=== PATIENT | female | born 1960 | race Caucasian/White ===

== ENCOUNTER 2018-04-25 04:00 | Emergency (ER) | payer OTHER ==
--- NOTE | 2018-04-25 05:24 | EDPHYS ---
Physician Documentation [facility] Name: Amara Noe Age: 57 yrs Sex: Female : 1960 Arrival Date: 04/25/2018 Time: 04:04 Bed 7 Private MD: ED Physician Brooks Montez HPI: 04/25 04:19 This 57 yrs old Female presents to ER via Ambulatory with complaints of Thumb ps1 Injury. 04:19 patient was dancing and FOOSH backwards. Did not hit head. No LOC. Pain rated 10/10. ps1 Associated with bruising and pain to MCP of thumb. Worse with movement. . Historical: - Allergies: 04:15 Sulfa (Sulfonamide Antibiotics); tl2 04:15 Tetanus-Diphtheria Toxoids-Td; tl2 04:15 Premarin; tl2 04:15 Codeine; tl2 04:15 steroids; tl2 - Home Meds: 04:15 muscle relaxer [Active]; Aspirin Oral [Active]; tl2 - PMHx: 04:15 None; tl2 - PSHx: 04:15 gastric sleeve; Hysterectomy; Bladder suspension; tl2 - Immunization history:: Adult Immunizations up to date. - Social history:: Smoking status: Patient/guardian denies using tobacco. - Ebola Screening: : No symptoms or risks identified at this time. ROS: 04:19 Constitutional: Negative for fever, chills, and weight loss, Eyes: Negative for injury, ps1 pain, redness, and discharge, Cardiovascular: Negative for chest pain, palpitations, and edema, Respiratory: Negative for shortness of breath, cough, wheezing, and pleuritic chest pain, Abdomen/GI: Negative for abdominal pain, nausea, vomiting, diarrhea, and constipation, Back: Negative for injury and pain, Skin: Negative for injury, rash, and discoloration, Neuro: Negative for headache, weakness, numbness, tingling, and seizure. 04:19 MS/extremity: Positive for decreased range of motion, pain, swelling. Exam: 04:19 Constitutional: This is a well developed, well nourished patient who is awake, alert, ps1 and in no acute distress. Head/Face: Normocephalic, atraumatic. Eyes: Pupils equal round and reactive to light, extra-ocular motions intact. Lids and lashes normal. Conjunctiva and sclera are non-icteric and not injected. Chest/axilla: Normal chest wall appearance and motion. Nontender with no deformity. No lesions are appreciated. Cardiovascular: Regular rate and rhythm. No gallops, murmurs, or rubs. Normal PMI, no JVD. No pulse deficits. Respiratory: Lungs have equal breath sounds bilaterally, clear to auscultation and percussion. No rales, rhonchi or wheezes noted. No increased work of breathing, no retractions or nasal flaring. Abdomen/GI: Soft, non-tender, with normal bowel sounds. No distension or tympany. No guarding or rebound. No evidence of tenderness throughout. 04:19 Musculoskeletal/extremity: Extremities: grossly normal except: noted in the lateral aspect of right hand: decreased ROM, ecchymosis, pain, swelling. Vital Signs: 04:15 BP 138 / 77; Pulse 68; Resp 18; Temp 98.3(O); Pulse Ox 95% on R/A; Weight 68.04 kg; tl2 Height 5 ft. 3 in. (160.02 cm); Pain 10/10; 05:27 BP 123 / 94; Pulse 70; Resp 18; Pulse Ox 98% on R/A; tl2 04:15 Body Mass Index 26.57 (68.04 kg, 160.02 cm) tl2 MDM: 04:28 Patient medically screened. ps1 05:23 Data reviewed: vital signs, nurses notes, radiologic studies, plain films, and as a ps1 result, I will discharge patient. Counseling: I had a detailed discussion with the patient and/or guardian regarding: the historical points, exam findings, and any diagnostic results supporting the discharge/admit diagnosis, radiology results, the need for outpatient follow up, a orthopedic surgeon, to return to the emergency department if symptoms worsen or persist or if there are any questions or concerns that arise at home. 04/25 04:11 Order name: Hand Right 3 View XRAY tl1 04/25 04:48 Order name: Humerus Right XRAY ps1 Administered Medications: 05:28 Drug: [place] 5 mg-325 mg 1 tabs Route: PO; tl2 05:33 Follow up: Response: No adverse reaction; Medication administered at discharge. tl2 Disposition: 04/25/18 05:23 Discharged to Home. Impression: right, non displaced 3rd metacarpal fx, Pain in right shoulder. - Condition is Stable. - Discharge Instructions: Metacarpal Fracture. - Medication Reconciliation Form, Thank You Letter, Antibiotic Education, Prescription Opioid Use form. - Follow up: Private Physician; When: As needed; Reason: Further diagnostic work-up, Recheck today's complaints, Continuance of care, Re-evaluation by your physician. Follow up: Emergency Department; When: As needed; Reason: Worsening of condition. - Problem is new. - Symptoms have improved. Signatures: Dispatcher [employer] EDMS Misty Croft RN RN tl2 Brooks Montez MD MD ps1 Corrections: (The following items were deleted from the chart) 05:25 05:23 04/25/2018 05:23 Discharged to Home. Impression: right, non displaced 3rd ps1 metacarpal fx. Condition is Stable. Forms are Medication Reconciliation Form, Thank You Letter, Antibiotic Education, Prescription Opioid Use. Follow up: Private Physician; When: As needed; Reason: Further diagnostic work-up, Recheck today's complaints, Continuance of care, Re-evaluation by your physician. Follow up: Emergency Department; When: As needed; Reason: Worsening of condition. Problem is new. Symptoms have improved. ps1 05:35 05:25 04/25/2018 05:23 Discharged to Home. Impression: right, non displaced 3rd tl2 metacarpal fx; Pain in right shoulder. Condition is Stable. Forms are Medication Reconciliation Form, Thank You Letter, Antibiotic Education, Prescription Opioid Use. Follow up: Private Physician; When: As needed; Reason: Further diagnostic work-up, Recheck today's complaints, Continuance of care, Re-evaluation by your physician. Follow up: Emergency Department; When: As needed; Reason: Worsening of condition. Problem is new. Symptoms have improved. ps1
--- NOTE | 2018-04-25 05:24 | ER ---
Nurse's Notes [facility] Name: Amara Noe Age: 57 yrs Sex: Female : 1960 Arrival Date: 04/25/2018 Time: 04:04 Bed 7 Private MD: Diagnosis: right, non displaced 3rd metacarpal fx;Pain in right shoulder Presentation: 04/25 04:11 Presenting complaint: Patient states: I fell backwards last night and caught myself tl2 with my right hand. I woke up around 3 and my hand is bruised and swollen. Transition of care: patient was not received from another setting of care. Onset of symptoms was April 25, 2018 at 00:00. Risk Assessment: Do you want to hurt yourself or someone else? Patient reports no desire to harm self or others. Initial Sepsis Screen: Does the patient meet any 2 criteria? No. Patient's initial sepsis screen is negative. Does the patient have a suspected source of infection? No. Patient's initial sepsis screen is negative. Care prior to arrival: None. 04:11 Method Of Arrival: Ambulatory tl2 04:11 Acuity: ANDREW 4 tl2 Triage Assessment: 04:15 General: Appears in no apparent distress. uncomfortable, Behavior is calm, cooperative, tl2 appropriate for age. Pain: Complains of pain in right hand. Neuro: Level of Consciousness is awake, alert, obeys commands, Oriented to person, place, time, situation. Respiratory: Airway is patent Respiratory effort is even, unlabored. Musculoskeletal: Circulation, motion, and sensation intact. Range of motion: limited in right wrist Swelling present in right hand. Injury Description: Bruise sustained to lateral aspect of right hand is purple, was sustained 2-4 hours ago. Historical: - Allergies: 04:15 Sulfa (Sulfonamide Antibiotics); tl2 04:15 Tetanus-Diphtheria Toxoids-Td; tl2 04:15 Premarin; tl2 04:15 Codeine; tl2 04:15 steroids; tl2 - Home Meds: 04:15 muscle relaxer [Active]; Aspirin Oral [Active]; tl2 - PMHx: 04:15 None; tl2 - PSHx: 04:15 gastric sleeve; Hysterectomy; Bladder suspension; tl2 - Immunization history:: Adult Immunizations up to date. - Social history:: Smoking status: Patient/guardian denies using tobacco. - Ebola Screening: : No symptoms or risks identified at this time. Screenin:21 Abuse screen: Denies threats or abuse. Nutritional screening: No deficits noted. tl2 Tuberculosis screening: No symptoms or risk factors identified. Fall Risk None identified. Assessment: 04:15 General: see triage assessment. tl2 05:27 Reassessment: Patient appears in no apparent distress at this time. Patient and/or tl2 family updated on plan of care and expected duration. Pain level reassessed. Patient is alert, oriented x 3, equal unlabored respirations, skin warm/dry/pink. Vital Signs: 04:15 BP 138 / 77; Pulse 68; Resp 18; Temp 98.3(O); Pulse Ox 95% on R/A; Weight 68.04 kg; tl2 Height 5 ft. 3 in. (160.02 cm); Pain 10/10; 05:27 BP 123 / 94; Pulse 70; Resp 18; Pulse Ox 98% on R/A; tl2 04:15 Body Mass Index 26.57 (68.04 kg, 160.02 cm) tl2 ED Course: 04:04 Patient arrived in ED. es 04:10 Brooks Montez MD is Attending Physician. ps1 04:12 Triage completed. tl2 04:15 Arm band placed on right wrist. tl2 04:21 Patient has correct armband on for positive identification. Bed in low position. Call tl2 light in reach. Side rails up X 1. 04:34 X-ray completed. Portable x-ray completed in exam room. Patient tolerated procedure mh1 well. 04:41 Hand Right 3 View XRAY In Process Unspecified. EDMS 04:57 pre formed wrist splint applied to rt wrist. Aaron wrap X2. CMS intact. cc 05:23 Humerus Right XRAY In Process Unspecified. EDMS 05:27 No provider procedures requiring assistance completed. tl2 05:32 Misty Croft RN is Primary Nurse. tl2 05:33 Patient did not have IV access during this emergency room visit. tl2 Administered Medications: 05:28 Drug: [place] 5 mg-325 mg 1 tabs Route: PO; tl2 05:33 Follow up: Response: No adverse reaction; Medication administered at discharge. tl2 Outcome: 05:23 Discharge ordered by . ps1 05:32 Discharged to home ambulatory. tl2 05:32 Condition: stable 05:32 Discharge instructions given to patient, Instructed on discharge instructions, follow up and referral plans. Demonstrated understanding of instructions, follow-up care. 05:35 Patient left the ED. tl2 Signatures: Dispatcher [employer] Page Kelly Martha mh1 Kathy Wolfe Taylor, RN RN tl2 Brooks Montez MD MD ps1
[2018-04-25] MEDS ORDERED: HYDROCODONE/APAP 5/325 MG TAB ONE (05:30)
--- NOTE | 2018-04-25 09:32 | RAD REPORT ---
EXAM DESCRIPTION: RAD - Hand Right 3 View - 04/25/2018 4:41 am CLINICAL HISTORY: Fall, wrist pain COMPARISON: None. FINDINGS: No fracture is identified. There is no dislocation or periosteal reaction noted. No forei gn body or other soft tissue abnormality. IMPRESSION: Negative right hand examination. Repeat imaging in 7 days could be performed if the nanette ent has continued symptoms concerning for fracture.
--- NOTE | 2018-04-25 09:34 | RAD REPORT ---
EXAM DESCRIPTION: RAD - Humerus Right - 04/25/2018 5:23 am CLINICAL HISTORY: Fall, upper extremity pain COMPARISON: None. FINDINGS: No fracture is identified. There is no dislocation or periosteal reaction noted. Patient h as mild degenerative changes at the AC joint and acromion. Acromial humeral joint space is normal. Mi ld degenerative changes noted at the lateral epicondyle of the elbow. No acute bone or joint finding confirmed. IMPRESSION: Negative right humerus examination for acute finding.
== END 2018-04-25 05:35 | disposition home or self-care (01) ==
LOC: ER 04:00
DX: S62.302A Unspecified fracture of third metacarpal bone, right hand, initial encounter for closed fracture (principal); M25.511 Pain in right shoulder; W19.XXXA Unspecified fall, initial encounter; Y93.41 Activity, dancing; Y92.9 Unspecified place or not applicable; Z79.82 Long term (current) use of aspirin; Z88.2 Allergy status to sulfonamides; Z88.5 Allergy status to narcotic agent; Z88.7 Allergy status to serum and vaccine; Z88.8 Allergy status to other drugs, medicaments and biological substances
CPT/HCPCS: 99283

== ENCOUNTER 2018-11-20 00:38 | Emergency (ER) | payer OTHER ==
--- OUTSIDE RECORDS SUMMARY | 2018-11-20 00:40 | XMS REPORT | Clinical Summary ---
:1960 Author Organization [facility] Address [address] [place] [address] Care Team Providers Name Role Phone Bernabe Quinones MD Primary Care Provider Allergies Active Allergy Reactions Severity Noted Date Comments Amoxicillin 06/11/2017 Codeine 06/11/2017 Pregabalin 06/11/2017 Other 06/11/2017 Bee's Other Food 07/08/2017 Steroids Conjugated Estrogens 06/11/2017 Sulfa (Sulfonamide Antibiotics) 06/11/2017 Tetanus Vaccines And Toxoid 06/11/2017 Medications Medication Sig Dispensed Refills Start Date End Date Status estradiol JARED ONE PATCH 2 05/26/2017 Active (VIVELLE-DOT) 0.1 TOPICALLY TWICE mg/24 hr WEEKLY. meloxicam (MOBIC) 15 TK 1 T PO QD 0 05/26/2017 Active mg tablet losartan (COZAAR) 50 TK 1 T PO QD 0 05/25/2017 Active MG tablet PNEUMOVAX 23 25 IMMUNIZATION GIVEN 0 04/27/2017 Active mcg/0.5 mL syringe vaccine estradiol (ESTRACE) 1 TK 1 T PO TWICE 0 06/08/2017 Active MG tablet WEEKLY methocarbamol TK 1 T PO BID 0 05/25/2017 Active (ROBAXIN) 500 MG tablet mometasone (ELOCON) APPLY AA D BY 0 06/08/2017 Active 0.1 % cream TOPICAL ROUTE PRN triamcinolone JARED SPARINGLY AA 0 03/31/2017 Active (KENALOG) 0.025 % BID PRN cream FLUCELVAX QUAD IMMUNIZATION GIVEN 0 04/27/2017 Active 7396-6151, PF, 60 mcg (15 mcg x 4)/0.5 mL syringe IM Injection estropipate (OGEN) 3 TK 1 T PO BID 60 tablet 0 10/02/2017 Active MG tabletIndications: Postmenopausal symptoms Active Problems Not on file Family History Medical History Relation Name Comments Colon cancer Brother Brain cancer Mother Relation Name Status Comments Brother dx unknown age Mother dx 60y/o Social History Tobacco Use Types Packs/Day Years Used Date Never Smoker Smokeless Tobacco: Never Used Sex Assigned at Date Recorded Not on file Job Start Date Occupation Industry Not on file Not on file Not on file Travel History Travel Start Travel End No recent travel history available. Last Filed Vital Signs Not on file Plan of Treatment Health Maintenance Due Date Last Done Comments CERVICAL CANCER SCREENING 10/24/1979 BREAST CANCER SCREENING 2008 COLON CANCER SCREENING 2008 SHINGLES VACCINES (#1) 2008 INFLUENZA VACCINE 03/17/2019 Results Not on fileafter 11/19/2017 Insurance Payer Benefit Plan / Group Subscriber ID Type Phone Address [employer]HC MEDICAID [employer] IVAN xxxxxxxxx HMO Advance Directives Patient has advance care planning documents on file. For more information, please contact:Adama Briceño [place] [address]
--- OUTSIDE RECORDS SUMMARY | 2018-11-20 00:41 | XMS REPORT ---
:1960 Author Organization [facility] Address [address] [place] [address] [address]. [address] [place] [address] Care Team Providers Name Role Phone MAGDIEL KING Unavailable Unavailable Problems This patient has no known problems. Allergies, Adverse Reactions, Alerts This patient has no known allergies or adverse reactions. Medications This patient has no known medications. Results Test Description Test Time Test Comments Text Results Atomic Results Result Comments TISSUE EXAM 2018-10-04 14:36:00 Surgical Pathology Report Case: [id number] Authorizing Provider: Magdiel King MD Collected: 09/30/2018 1741 Ordering Location: [facility] Received: 10/01/2018 0825 SERVICES Pathologist: Elroy Araya MD Specimen: Abdomen, ABDOMINAL PANNUS A. ABDOMEN, PANNUS, EXCISION: - BENIGN SKIN AND UNREMARKABLE ADIPOSE TISSUE Signing Pathologist Direct Phone Line: [phone] signed by Elroy Araya MD on 10/04/2018 at 2:36 [id number] panniculusAbdominal pannusThe specimen is received in a formalin-filled container and labeled with the patient's information and labeled "abdominal pannus" and consists of two segments of fibrofatty tissue and damon-white skin both measuring 22 x 19 x 3 cm. The skin is unremarkable. Cut surface is predominantly fatty tissue. There are no masses seen. Monkey Trainer sections are submitted A1 through A6. CG/pl Performed. ELECTROLYTES 2018-09-28 11:51:00 Test Item Value Reference Range Comments SODIUM (BEAKER) (test pacf=673) 141 meq/L 136-145 POTASSIUM (BEAKER) (test rvxi=389) 4.5 meq/L 3.5-5.1 CHLORIDE (BEAKER) (test rdpr=071) 108 meq/L 98-107 CO2 (BEAKER) (test svow=573) 28 meq/L 22-29 BUN AND [id number] 11:51:00 Test Item Value Reference Range Comments BLOOD UREA NITROGEN 15 mg/dL 7-21 (BEAKER) (test aedd=543) CREATININE (BEAKER) (test 0.70 mg/dL 0.57-1.25 tgij=649) EGFR (BEAKER) (test 86 mL/min/1.73 sq m ESTIMATED GFR IS NOT iuqz=7373) ACCURATE CREATININE CLEARANCE IN PREDICTING GLOMERULAR FILTRATION RATE. ESTIMATED GFR IS NOT APPLICABLE FOR DIALYSIS PATIENTS. [id number] 11:39:00 Test Item Value Reference Range Comments HEMOGLOBIN (BEAKER) (test gval=584) 13.2 GM/DL 11.2-15.7 FL, NDT INSPECTOR IN OR/30 MINUTE [id number] 07:40:00Reason for exam:->a -arm neededFLUOROSCOPIC UNIT UTILIZED. NO INTERPRETATION REQUESTED.
--- OUTSIDE RECORDS SUMMARY | 2018-11-20 00:41 | XMS REPORT | Summary of Care ---
:1960 Author Name ANA Bruce, YASMEEN Address [facility] Unavailable , Care Team Providers Name Role Phone ANA Bruce, YASMEEN Unavailable Unavailable Functional Status Name Dates Details Functional status health issues are not documented Status: Name Dates Details Cognitive status health issues are not documented Status: Problems Name Dates Details Rectocele, female (618.04, N81.6) Status: Active Urinary incontinence (788.30, R32) Status: Active Vaginal pain (625.9, R10.2) Status: Active Cystocele Status: Active Mixed incontinence urge and stress (788.33, N39.46) Status: Active Atrophic vaginitis (627.3, N95.2) Status: Active Urinary frequency (788.41, R35.0) Status: Active Urinary urgency (788.63, R39.15) Status: Active Medications Name Dates Details Aspir-81 TBEC Refills: 0 Active Estradiol TABS Refills: 0 Active Estradiol 2 MG Oral Tablet Refills: 0 Active Estropipate TABS Refills: 0 Active Acetaminophen-Codeine #3 300-30 MG Oral Tablet Refills: 0 Active Flintstones/My First CHEW Refills: 0 Active Biotin 55882 MCG Oral Tablet Refills: 0 Active B-12 500 MCG Oral Tablet Refills: 0 Active Vitamin D3 5000 UNIT Oral Capsule Refills: 0 Active Calcium 600+D3 600-800 MG-UNIT Oral Tablet Refills: 0 Active Ascorbic Acid TABS Refills: 0 Active Lecithin 500 MG CAPS Refills: 0 Active Collagen 500 MG CAPS Refills: 0 Active Allergies and Adverse Reactions Name Dates Details Albuterol AERS (Allergy) Status: Active Amoxicillin TABS (Allergy) Status: Active Codeine Derivatives (Allergy) Status: Active Lyrica CAPS (Allergy) Status: Active PredniSONE TABS (Allergy) Status: Active Premarin (Allergy) Status: Active Sulfa Drugs (Allergy) Status: Active TETANUS (Allergy) Status: Active Bee sting (Allergy) Status: Active Past Medical History Name Dates Details History of chlamydia (V12.09, Z86.19) Status: Resolved History of chronic fatigue (V13.89, Z87.898) Status: Resolved History of chronic pain (V13.89, Z87.898) Status: Resolved History of cyst of breast (V13.3, Z87.2) Status: Resolved History of Degenerative disorder of bone (733.90, M89.8X9) Status: Resolved History of depression (V11.8, Z86.59) Status: Resolved History of dislocation of shoulder (V13.59, Z87.39) Status: Resolved History of fibromyalgia (V13.59, Z87.39) Status: Resolved History of gonorrhea (V12.09, Z86.19) Status: Resolved History of Incontinence (788.30, R32) Status: Resolved 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, 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: Resolved History of post traumatic stress disorder (V11.8, Z86.59) Status: Resolved History of scoliosis (V13.59, Z87.39) Status: Resolved Procedures Procedure Dates Details History of Cyst excision Completed History of Gastric bypass surgery Completed History of Hysterectomy Completed History of Urethropexy Completed Immunization Name Dates Details Immunizations not documented Family History Name Dates Details Family history of Heart defect (746.9, Q24.9) Status: Active Family history of autoimmune disorder (V19.8, Z83.2) Status: Active Family history of lupus erythematosus (V19.8, Z84.0) Status: Active Name Dates Details Family history of bipolar disorder (V17.0, Z81.8) Status: Active Family history of malignant neoplasm of colon (V16.0, Z80.0) Status: Active Name Dates Details Family history of hepatic cirrhosis (V18.59, Z83.79) Status: Active Family history of schizophrenia (V17.0, Z81.8) Status: Active Name Dates Details Family history of cardiac disorder (V17.49, Z82.49) Status: Active Social History Name Dates Details - Status: Name Dates Details Never smoker Vital Signs Date Test Result Details [id number] BP Systolic 150 mm[Hg] Status: Comments: Location: RUE; Position: Sitting BP Diastolic 99 mm[Hg] Status: Comments: Location: RUE; Position: Sitting Weight 156 lb Status: Body Mass Index Calculated 27.63 kg/m2 Status: Body Surface Area Calculated 1.74 m2 Status: Height 63 in Status: Heart Rate 88 /min Status: Results Date Description Value Details [id number] [[facility], 1928–1983] CULTURE, URINE, ROUTINE Comments: Source: Urine, Clean CatchBody Site: FINAL REPORT No Growth Plan of Care Name Dates Details Planned Observations Planned Goals not documented Interventions Provided InstructionsPatient Specific Education Given; Done: 18 Feb 2018Discussion/ SummaryI discussed with pt about her condition and her treatment options including conservative care, PT, medications, and minimally invasive procedures.Plan was made for Bladder training and I have given her instructions for it. Bladder diary was given.Vaginal estrogen therapyFiber regimenUrine culture was sentWe spoke about risks and benefits of physical therapy and pt declined it.Will plan for Multichannel UDS and Cystoscopy if no improvementObtain records for Dr. Hansen ([place]). Instructions Name Dates Details Instructions not documented Encounters Appointment; FRANK DANIELLE M.D. On: 09-Feb-2018 15:10 Encounter Diagnosis: Problem not documented Appointment; YASMEEN PEREZ M.D. On: 18-Feb-2018 14:00 Encounter Diagnosis: Problem not documented
--- OUTSIDE RECORDS SUMMARY | 2018-11-20 00:41 | XMS REPORT | Clinical Summary ---
:1960 Author Organization [facility] Address [address] [place] [address] Care Team Providers Name Role Phone Bernabe Quinones MD Primary Care Provider Allergies Active Allergy Reactions Severity Noted Date Comments Amoxicillin Nausea Only Low 05/28/2018 Pregabalin Rash Low 05/28/2018 Prednisone Anaphylaxis High 05/28/2018 All steriods Conjugated Estrogens Hives Medium 05/28/2018 Sulfa (Sulfonamide Antibiotics) Itching Low 05/28/2018 Tetanus Vaccines And Toxoid Hives Medium 05/28/2018 Ketorolac Other (See Comments) Medium 05/28/2018 Migraine Medications Medication Sig Dispensed Refills Start Date End Date Status estradiol Place 1 patch 0 Active (VIVELLE-DOT) 0.1 onto the skin mg/24 hr patch twice a week. multivitamin per Take 1 tablet 0 Active tablet by mouth daily. cyanocobalamin Take 500 mcg 0 Active (VITAMIN B-12) 500 by mouth MCG tablet daily. biotin 10,000 mcg Take by mouth. 0 Active Cap cholecalciferol, Take 5,000 0 Active vitamin D3, 5,000 Units by mouth unit Tab daily. calcium Take by mouth. 0 Active carbonate-vit D3-min (CALCIUM 600 + MINERALS) 600 mg calcium- 200 unit Tab ascorbic acid, Take 1,000 mg 0 Active vitamin C, (VITAMIN by mouth C) 1000 MG tablet daily. ondansetron Take 4 mg by 0 Active (ZOFRAN-ODT) 4 MG mouth every 8 disintegrating (eight) hours tablet as needed for Nausea. estradiol (ESTRACE) Take 0.5 mg by 0 Active 0.5 MG tablet mouth daily. HYDROcodone-acetamin Take 1 tablet 0 Discontinued ophen (NORCO 5-325) by mouth every 9 5-325 mg per tablet 6 (six) hours as needed for Pain. methocarbamol Take 500 mg by 0 Discontinued (ROBAXIN) 500 MG mouth 3 9 tablet (three) times daily. estradiol (ESTRACE) Place 2 g 0 Discontinued 0.01 % (0.1 mg/gram) vaginally 9 vaginal cream twice a week. aspirin 325 MG Take 325 mg by 0 Discontinued tablet mouth daily. 9 acetaminophen-codein Take 1 tablet 0 Discontinued e (TYLENOL #3) by mouth every 9 300-30 mg per tablet 4 (four) hours as needed for Pain. traMADol (ULTRAM) 50 Take 1 tablet 40 tablet 0 06/01/2018 mg tablet (50 mg total) 8 by mouth every 4 (four) hours as needed for Pain for up to 10 days. Max Daily Amount: 300 mg aspirin 81 MG EC Take 81 mg by 0 Discontinued tablet mouth daily. 9 acetaminophen Take 2 tablets 120 tablet 0 10/01/2018 (TYLENOL) 325 MG (650 mg total) 9 tablet by mouth every 6 (six) hours for 15 days. cyclobenzaprine Take 1 tablet 30 tablet 0 10/01/2018 (FLEXERIL) 10 MG (10 mg total) 9 tablet by mouth 3 (three) times daily as needed for Muscle spasms for up to 10 days. gabapentin Take 1 capsule 45 capsule 0 10/01/2018 (NEURONTIN) 300 MG (300 mg total) 9 capsule by mouth 3 (three) times daily for 15 days. oxyCODONE (OXY-IR) Take 1 tablet 30 tablet 0 10/01/2018 10 mg tablet (10 mg total) 9 by mouth every 6 (six) hours as needed for up to 10 days. Max Daily Amount: 40 mg traMADol (ULTRAM) 50 Take 2 tablets 30 tablet 0 10/01/2018 mg tablet (100 mg total) 9 by mouth every 6 (six) hours as needed for Pain for up to 10 days. Max Daily Amount: 400 mg Active Problems Problem Noted Date Abdominal pannus 09/30/2018 Status post panniculectomy 09/30/2018 Acquired mallet finger, right 06/01/2018 Encounters Date Type Specialty Care Team Description 09/30/2018 Anesthesia Event Jossie Vivas MD 09/30/2018 Surgery HARRIET KingNICULECTJOHNNIE Soliz MD 09/30/2018 - Hospital Encounter General Internal Fernando, Status post 10/01/2018 Medicine MD Martínez panniculectomy (Primary Dx) 09/28/2018 Hospital Encounter Pre-Admission Gurjit King MD 09/24/2018 Hospital Encounter Pre-Admission Gurjit King MD Resource, Oqmt Preadmit Phone 06/01/2018 Anesthesia Event Prince Deshaun Buitrago MD 06/01/2018 Surgery Bienvenido, CLOSED REDUCTION Eduardo Spence MD W/PINNING,FINGER 06/01/2018 Hospital Encounter Eduardo Faria MD after 11/19/2017 Social History Tobacco Use Types Packs/Day Years Used Date Never Smoker Smokeless Tobacco: Never Used Alcohol Use Drinks/Week oz/Week Comments Yes 2 Glasses of wine 1.2 Sex Assigned at Date Recorded Not on file Job Start Date Occupation Industry Not on file Not on file Not on file Travel History Travel Start Travel End No recent travel history available. Last Filed Vital Signs Vital Sign Reading Time Taken Blood Pressure 117/63 10/01/2018 3:06 PM [employer]PORT [employer]IDE Pulse 66 10/01/2018 3:06 PM [employer]PORT [employer] Temperature 36.1 C (97 F) 10/01/2018 3:06 PM [employer]PORT [employer]IDE Respiratory Rate 18 10/01/2018 3:06 PM [employer]PORT [employer]IDE Oxygen Saturation 100% 10/01/2018 3:06 PM AIRPORT GUIDE Inhaled Oxygen Concentration - - Weight 71.2 kg (157 lb) 09/30/2018 10:33 PM [employer]PORT [employer]IDE Height 160 cm (5' 3") 09/30/2018 10:33 PM [employer]PORT [employer]IDE Body Mass Index 27.81 09/30/2018 10:33 PM [employer] [facility]IDE Plan of Treatment Not on file Implants Implanted Type Area Tool Designer Apprentice Device Shelf Model / Identifier Expiration Serial / Date Lot K-Wire [id number] - [id number] Fracture Right: LEOPOLDO:LEOPOLDO [id number] / Implanted: Qty: 1 on 06/01/2018 by Eduardo Faria MD /Fixatio Finger SPINE / n Procedures Procedure Name Priority Date/Time Associated Diagnosis Comments TISSUE EXAM AP Routine 09/30/2018 5:41 PM Results for this AIRPORT GUIDE procedure are in the results section. PANNICULECTOMY 09/30/2018 11:54 AM Abdominal panniculus AIRPORT [employer]IDE Case Notes 3 HRS HEMOGLOBIN Routine 09/28/2018 11:12 AM Results for this AIRPORT GUIDE procedure are in the results section. ELECTROLYTE PANEL Routine 09/28/2018 11:12 AM Results for this AIRPORT GUIDE procedure are in the results section. BUN AND CREATININE Routine 09/28/2018 11:12 AM Results for this AIRPORT GUIDE procedure are in the results section. FL FIRE PREVENTION OFFICER IN OR 30 Routine 06/01/2018 10:40 AM Results for this MINUTE INCREMENTS CDT procedure are in the results section. PROCEDURE W/ C-ARM 06/01/2018 9:45 AM Mallet finger of CDT right finger(s) Special Needs REQ. K-WIRES CLOSED REDUCTION 06/01/2018 9:45 AM CDT Mallet finger of right W/PINNING,FINGER finger(s) Special Needs MD REQ. K-WIRES after 11/19/2017 Results Tissue Exam (09/30/2018 5:41 PM AIRPORT GUIDE) Case Report Surgical Pathology Report Case: [id number] [facility] Authorizing Provider:Martíenz King MDCollected: 09/30/2018 1741 [facility] Ordering Location: [facility] Received: 10/01/2018 0825 SERVICES Pathologist: Elroy Araya MD Specimen:Abdomen, ABDOMINAL PANNUS DIAGNOSIS A. ABDOMEN, PANNUS, EXCISION: [facility] - BENIGN SKIN AND UNREMARKABLE ADIPOSE TISSUE [facility] Signing Pathologist Direct Phone Line: [phone] CPT Code(s) 64857 [facility] CLINICAL HISTORY Abdominal panniculus [facility] SPECIMEN SOURCE Abdominal pannus [facility] GROSS DESCRIPTION The specimen is received in [facility] a formalin-filled container [facility] and labeled with the patient's information and labeled "abdominal pannus" and consists of two segments of fibrofatty tissue and damon-white skin both measuring 22 x 19 x 3 cm. The skin is unremarkable. Cut surface is predominantly fatty tissue. There are no masses seen. Leather Dresser sections are submitted A1 through A6. CG/pl MICROSCOPIC DESCRIPTION Performed. [facility] Specimen Tissue - Abdomen Performing Organization Address [facility] Phone Number [address] [address] [place] BUN and Creatinine (09/28/2018 11:12 AM AIRPORT GUIDE) BUN 15 7 - 21 mg/dL [facility] Creatinine 0.70 0.57 - 1.25 mg/dL [facility] EGFR 86Comment: ESTIMATED GFR IS mL/min/1.73 sq m [facility] NOT ACCURATE CREATININE [facility] CLEARANCE IN PREDICTING GLOMERULAR FILTRATION RATE. ESTIMATED GFR IS NOT APPLICABLE FOR DIALYSIS PATIENTS. Specimen Blood Performing Organization Address [facility] Phone Number [address] [address] [phone] [place] Hemoglobin (09/28/2018 11:12 AM AIRPORT GUIDE) Hemoglobin 13.2 11.2 - 15.7 GM/DL [facility] Specimen Blood Performing Organization Address [facility] Phone Number [address] [address] [place] Electrolytes (09/28/2018 11:12 AM AIRPORT GUIDE) Sodium 141 136 - 145 meq/L [facility] Potassium 4.5 3.5 - 5.1 meq/L [facility] Chloride 108 (H) 98 - 107 meq/L [facility] CO2 28 22 - 29 meq/L [facility] Specimen Blood Performing Organization Address [facility]ode Phone Number [address] [address] [place] Social Organization Professor in OR 30 minute increments (06/01/2018 10:40 AM CDT) Narrative Performed At FLUOROSCOPIC UNIT UTILIZED. NO INTERPRETATION REQUESTED. [facility] Procedure Note Interface, External Ris In - 06/08/2018 7:41 AM CDT FLUOROSCOPIC UNIT UTILIZED. NO INTERPRETATION REQUESTED. Performing Organization Address City/State/Zipcode Phone Number GE RIS after 11/19/2017 Insurance Payer Benefit Plan / Subscriber ID Type Phone Address Group MEDICAID - MEDICAID [facility] xxxxxxxxx Medicaid Contracted [facility] CARE PLAN Advance Directives Patient has advance care planning documents, and code status on file. For more information, please contact:[address] [phone] Code Status Date Activated Date Inactivated Comments Full Code 09/30/2018 11:09 AM 09/30/2018 10:33 PM This code status was determined by: Patient Full Code 06/01/2018 6:58 AM 06/01/2018 5:50 PM This code status was determined by: Patient
[2018-11-20] MEDS ORDERED: NA CHLORIDE 0.9% 1,000 ML ONE (02:14)
[2018-11-20] MEDS ORDERED: NA CHLORIDE 0.9% 500 ML ONE (02:15)
[2018-11-20 02:25] LABS: Absolute Lymphocytes (CBC) 2.4 K/uL (0.7-4.9); Absolute Monocytes 0.5 K/uL (0.1-1.3); Absolute Neutrophil 4.7 K/uL (1.8-8.0); Basophils % 0.7 % (0-1.3); Eosinophils % 1.3 % (0-4.4); Hematocrit 38.1 % (36.0-45.0); Lymphocytes % 30.5 % (15.3-44.8); MPV 8.5 fL (7.6-11.3)
[2018-11-20 02:41] LABS: ALT/SGPT 20 U/L (12-78); AST/SGOT 14 U/L (15-37); Albumin 4.1 g/dL (3.4-5.0); Alkaline Phosphatase 81 U/L (45-117); BUN Blood Urea Nitrogen 15 mg/dL (7-18); Bicarbonate 25 mmol/L (21-32); Bilirubin Direct < 0.1 mg/dL (0-0.2); Bilirubin Total 0.2 mg/dL (0.2-1.0); Glucose Level 75 mg/dL (74-106); Potassium 3.6 mmol/L (3.5-5.1); Protein, Total 6.9 g/dL (6.4-8.2); Sodium Level 146 mmol/L (136-145)
--- NOTE | 2018-11-20 04:09 | EDPHYS ---
Physician Documentation [facility] Name: Amara White Age: 58 yrs Sex: Female : 1960 Arrival Date: 11/20/2018 Time: 00:45 Bed 6 Private MD: ED Physician Wilian Lynne HPI: 11/20 01:45 This 58 yrs old Female presents to ER via EMS with complaints of Accidental pkl Overdose. 01:45 The patient presents to the emergency department after a known overdose, that was pkl accidental. Context: Method: the patient has a confirmed or suspected ingestion, of alcohol, Flexaril. Tylenol 3. Associated signs and symptoms: Pertinent positives: decrease mental; status. - Immunization history:: Adult Immunizations up to date. - Social history:: Smoking status: Patient/guardian denies using tobacco, Patient uses alcohol, weekly. - Ebola Screening: : No symptoms or risks identified at this time. ROS: 01:45 Eyes: Negative for injury, pain, redness, and discharge, ENT: Negative for injury, pkl pain, and discharge, Neck: Negative for injury, pain, and swelling, Cardiovascular: Negative for chest pain, palpitations, and edema, Respiratory: Negative for shortness of breath, cough, wheezing, and pleuritic chest pain, Abdomen/GI: Negative for abdominal pain, nausea, vomiting, diarrhea, and constipation, Back: Negative for injury and pain, : Negative for injury, bleeding, discharge, and swelling, MS/Extremity: Negative for injury and deformity, Skin: Negative for injury, rash, and discoloration, Neuro: Negative for headache, weakness, numbness, tingling, and seizure. 01:45 Psych: Negative for suicidal ideation. Exam: 01:45 Head/Face: Normocephalic, atraumatic. Eyes: Pupils equal round and reactive to light, pkl extra-ocular motions intact. Lids and lashes normal. Conjunctiva and sclera are non-icteric and not injected. Cornea within normal limits. Periorbital areas with no swelling, redness, or edema. ENT: Nares patent. No nasal discharge, no septal abnormalities noted. Tympanic membranes are normal and external auditory canals are clear. Oropharynx with no redness, swelling, or masses, exudates, or evidence of obstruction, uvula midline. Mucous membranes moist. Neck: Trachea midline, no thyromegaly or masses palpated, and no cervical lymphadenopathy. Supple, full range of motion without nuchal rigidity, or vertebral point tenderness. No Meningismus. Chest/axilla: Normal chest wall appearance and motion. Nontender with no deformity. No lesions are appreciated. Cardiovascular: Regular rate and rhythm with a normal S1 and S2. No gallops, murmurs, or rubs. Normal PMI, no JVD. No pulse deficits. Respiratory: Lungs have equal breath sounds bilaterally, clear to auscultation and percussion. No rales, rhonchi or wheezes noted. No increased work of breathing, no retractions or nasal flaring. Abdomen/GI: Soft, non-tender, with normal bowel sounds. No distension or tympany. No guarding or rebound. No evidence of tenderness throughout. Back: No spinal tenderness. No costovertebral tenderness. Full range of motion. Skin: Warm, dry with normal turgor. Normal color with no rashes, no lesions, and no evidence of cellulitis. MS/ Extremity: Pulses equal, no cyanosis. Neurovascular intact. Full, normal range of motion. Neuro: Awake and alert, GCS 15, oriented to person, place, time, and situation. Cranial nerves II-XII grossly intact. Motor strength 5/5 in all extremities. Sensory grossly intact. Cerebellar exam normal. Normal gait. 01:45 Psych: Behavior/mood is cooperative, Patient has no thoughts/intents to harm self or others. Vital Signs: 00:42 BP 124 / 74; Pulse 63; Resp 16; Temp 97.6; Pulse Ox 97% on R/A; Weight 68.95 kg; Height ea 5 ft. 5 in. (165.10 cm); 01:00 BP 124 / 74; Pulse 61; Resp 18; Pulse Ox 96% on R/A; ea 02:00 BP 127 / 76; Pulse 57; Resp 18; Pulse Ox 98% on R/A; ea 03:55 BP 117 / 64; Pulse 65; Resp 18; Pulse Ox 96% on R/A; ea 00:42 Body Mass Index 25.29 (68.95 kg, 165.10 cm) ea MDM: 01:12 Patient medically screened. [facility] 04:07 Data reviewed: vital signs, nurses notes, lab test result(s), EKG. pkl 11/20 01:27 Order name: Acetaminophen; Complete Time: 02:47 pkl 11/20 01:27 Order name: Basic Metabolic Panel; Complete Time: 02:47 pkl 11/20 01:27 Order name: CBC with Diff; Complete Time: 02:34 pkl 11/20 01:27 Order name: ETOH Level; Complete Time: 02:47 pkl 04 01:27 Order name: Hepatic Function; Complete Time: 02:47 pkl 11/20 01:27 Order name: PT-INR; Complete Time: 02:34 pkl 11/20 01:27 Order name: Ptt, Activated; Complete Time: 02:34 pkl 11/20 01:27 Order name: Salicylate; Complete Time: 02:47 pkl 11/20 01:27 Order name: EKG; Complete Time: 01:27 pkl 11/20 01:27 Order name: EKG - Nurse/Tech; Complete Time: 02:14 pkl 11/20 01:27 Order name: IV Saline Lock; Complete Time: 01:54 pkl 11/20 01:27 Order name: Labs collected and sent; Complete Time: 01:54 pkl Administered Medications: 02:14 Drug: NS 0.9% 500 ml Route: IV; Rate: bolus; Site: right antecubital; ea 03:20 Follow up: Response: No adverse reaction; IV Status: Completed infusion; IV Intake: ea 500ml 02:14 Drug: NS 0.9% 1000 ml Route: IV; Rate: 125 ml/hr; Site: right antecubital; ea 04:39 Follow up: Response: No adverse reaction; IV Status: Completed infusion; IV Intake: ea 300ml Disposition: 11/20/18 04:08 Discharged to Home. Impression: Accidental drug overdose. - Condition is Stable. - Medication Reconciliation Form, Thank You Letter, Antibiotic Education, Prescription Opioid Use form. - Follow up: Private Physician; When: 2 - 3 days; Reason: Re-evaluation by your physician. - Problem is new. - Symptoms have improved. Signatures: Dispatcher [employer] EDMS Wilian Lynne MD MD pkl Antunez, Elena, RN RN ea Corrections: (The following items were deleted from the chart) 04:38 04:08 11/20/2018 04:08 Discharged to Home. Impression: Accidental drug overdose. ea Condition is Stable. Forms are Medication Reconciliation Form, Thank You Letter, Antibiotic Education, Prescription Opioid Use. Follow up: Private Physician; When: 2 - 3 days; Reason: Re-evaluation by your physician. Problem is new. Symptoms have improved. pkl
--- NOTE | 2018-11-20 04:09 | ER ---
Nurse's Notes [facility] Name: Amara Noe Age: 58 yrs Sex: Female : 1960 Arrival Date: 11/20/2018 Time: 00:45 Bed 6 Private MD: Diagnosis: Accidental drug overdose Presentation: 11/20 00:42 Presenting complaint: EMS states: EMS reports pt took too much of her flexeril, tylenol ea 3, mixed with alcohol at around 7 PM Pt reports she has done that in the past. Pt denied SI. Transition of care: patient was not received from another setting of care. Onset of symptoms was November 20, 2018. Risk Assessment: Do you want to hurt yourself or someone else? Patient reports no desire to harm self or others. Initial Sepsis Screen: Does the patient meet any 2 criteria? No. Patient's initial sepsis screen is negative. Does the patient have a suspected source of infection? No. Patient's initial sepsis screen is negative. Care prior to arrival: Medication(s) given: zofran 4 mg, IV initiated. 20 GA, in the right forearm. 00:42 Method Of Arrival: EMS: [facility] ea 00:42 Acuity: ANDREW 3 ea - Immunization history:: Adult Immunizations up to date. - Social history:: Smoking status: Patient/guardian denies using tobacco, Patient uses alcohol, weekly. - Ebola Screening: : No symptoms or risks identified at this time. Screenin:22 Abuse screen: Denies threats or abuse. Nutritional screening: No deficits noted. ea Tuberculosis screening: No symptoms or risk factors identified. Fall Risk IV access (20 points). Assessment: 00:42 General: Pt reports she took about 4 to 6 tablets of her Flexeril and 4 to 6 tablets of ea Tylenol 3 between 7 PM and 9 PM. Pt denied suicidal ideation states " I was in physical pain and couldn't get relief" Pt reports drinking while taking medications. . Pain: Complains of pain in generalized pain. Neuro: Level of Consciousness is awake, alert, obeys commands, Oriented to person, place, time, situation. Cardiovascular: Patient's skin is warm and dry. Respiratory: Airway is patent Respiratory effort is even, unlabored, Respiratory pattern is regular, symmetrical. GI: Abdomen is non-distended, Reports nausea. Derm: Skin is pink, warm \\T\\ dry. 01:50 Reassessment: Patient and/or family updated on plan of care and expected duration. Pain ea level reassessed. Patient is alert, oriented x 3, equal unlabored respirations, skin warm/dry/pink. Patient denies pain at this time. 02:18 Reassessment: Patient and/or family updated on plan of care and expected duration. Pain ea level reassessed. Pt resting with eyes closed, respirations even and unlabored, chest expansions even and symmetrical. No s/s of pain or discomfort noted at this time. 03:50 Reassessment: Patient and/or family updated on plan of care and expected duration. Pain ea level reassessed. Patient is alert, oriented x 3, equal unlabored respirations, skin warm/dry/pink. 04:30 Reassessment: Patient and/or family updated on plan of care and expected duration. Pain ea level reassessed. Patient is alert, oriented x 3, equal unlabored respirations, skin warm/dry/pink. Discharge instruction given to patient, verbalized the understanding of instruction. Family member at facility to for transport. Vital Signs: 00:42 BP 124 / 74; Pulse 63; Resp 16; Temp 97.6; Pulse Ox 97% on R/A; Weight 68.95 kg; Height ea 5 ft. 5 in. (165.10 cm); 01:00 BP 124 / 74; Pulse 61; Resp 18; Pulse Ox 96% on R/A; ea 02:00 BP 127 / 76; Pulse 57; Resp 18; Pulse Ox 98% on R/A; ea 03:55 BP 117 / 64; Pulse 65; Resp 18; Pulse Ox 96% on R/A; ea 00:42 Body Mass Index 25.29 (68.95 kg, 165.10 cm) ea ED Course: 00:42 Arm band placed on right wrist. Patient placed in an exam room, on a stretcher, on ea cardiac care unit nurse, on pulse oximetry. 00:42 Patient has correct armband on for positive identification. Bed in low position. Call ea light in reach. Side rails up X2. 00:42 Maintain EMS IV. Dressing intact. Site clean \\T\\ dry. Gauge \\T\\ site: 20 G in right AC. ea 00:45 Patient arrived in ED. fc 01:09 Rudd, Juliann, RN is Primary Nurse. ea 01:11 Wilian Lynne MD is Attending Physician. pkl 01:15 Triage completed. ea 04:20 No provider procedures requiring assistance completed. IV discontinued, intact, ea bleeding controlled, No redness/swelling at site. Pressure dressing applied. Administered Medications: 02:14 Drug: NS 0.9% 500 ml Route: IV; Rate: bolus; Site: right antecubital; ea 03:20 Follow up: Response: No adverse reaction; IV Status: Completed infusion; IV Intake: ea 500ml 02:14 Drug: NS 0.9% 1000 ml Route: IV; Rate: 125 ml/hr; Site: right antecubital; ea 04:39 Follow up: Response: No adverse reaction; IV Status: Completed infusion; IV Intake: ea 300ml Intake: 03:20 IV: 500ml; Total: 500ml. ea 04:39 IV: 300ml; Total: 800ml. ea Outcome: 04:08 Discharge ordered by . pkl 04:31 Discharged to home via wheelchair, with family. ea 04:31 Condition: improved 04:31 Discharge instructions given to patient, family, Instructed on discharge instructions, follow up and referral plans. Demonstrated understanding of instructions, follow-up care. 04:38 Patient left the ED. ea Signatures: Wilian Lynne MD MD pkClarissa Gandhi RN Juliann Li RN RN junior
--- NOTE | 2018-11-23 11:29 | EKG ---
Test Date: 2018-11-20 Test Time: 02:07:48 Laborer Demolition: SHERLYN MEASUREMENT RESULTS: Intervals: Rate: 56 IL: 230 QRSD: 88 QT: 454 QTc: 438 [place]: P: 34 IL: 230 QRS: 54 T: 58 INTERPRETIVE STATEMENTS: Sinus bradycardia with sinus arrhythmia with 1st degree AV block Otherwise normal ECG No previous ECG available for comparison Electronically Signed On 11-20-18 16:43:39 CDT by Param Reddy
== END 2018-11-20 04:38 | disposition home or self-care (01) ==
LOC: ER 00:38
DX: T48.1X1A Poisoning by skeletal muscle relaxants [neuromuscular blocking agents], accidental (unintentional), initial encounter (principal); T39.1X1A Poisoning by 4-Aminophenol derivatives, accidental (unintentional), initial encounter
CPT/HCPCS: 36415; 80048; 80076; 80320; 80329; 85025; 85610; 85730; 93005; 96360; 96361; 99284; J7030

== ENCOUNTER 2018-12-19 23:03 | Emergency (ER) | payer OTHER ==
--- OUTSIDE RECORDS SUMMARY | 2018-12-19 23:07 | XMS REPORT | Clinical Summary ---
:1960 Author Organization [facility] Address [address] [place] [address] Care Team Providers Name Role Phone Bernabe [...] FLUCELVAX QUAD IMMUNIZATION GIVEN 0 04/27/2017 Active [id number], PF, 60 mcg (15 mcg x 4)/0.5 [...] INFLUENZA VACCINE 03/17/2019 Results Not on fileafter 12/18/2017 Insurance Payer Benefit Plan / Group Subscriber ID Type Phone Address [employer] MEDICAID [employer]+ IVAN xxxxxxxxx HMO Advance Directives Patient has advance care planning documents on file. For more information, please contact:[facility] [place] [address]
--- OUTSIDE RECORDS SUMMARY | 2018-12-19 23:08 | XMS REPORT ---
:1960 [facility] Address [address] [place] [address] Care Team Providers Name Role Phone MAGDIEL KING Unavailable Unavailable Problems This patient has no known problems. Allergies, Adverse Reactions, Alerts This patient has no known allergies or adverse reactions. Medications This patient has no known medications. Results Test Description Test Time Test Comments Text Results Atomic Results Result Comments TISSUE EXAM 2018-10-04 14:36:00 Surgical Pathology Report Case: [id number] Authorizing Provider: Magdiel King MD Collected: 09/30/2018 1741 Ordering Location: [facility] Received: 10/01/2018 0825 SERVICES Pathologist: Elroy Araya MD Specimen: Abdomen, ABDOMINAL PANNUS A. ABDOMEN, PANNUS, EXCISION: - BENIGN SKIN AND UNREMARKABLE ADIPOSE TISSUE Signing Pathologist Direct Phone Line: [phone] signed by Elroy Araya MD on 10/04/2018 at 2:36 [id number] panniculusAbdominal pannusThe specimen is received in a formalin-filled container and labeled with the patient's information and labeled "abdominal pannus" and consists of two segments of fibrofatty tissue and damon-white skin both measuring 22 x 19 x 3 cm. The skin is unremarkable. Cut surface is predominantly fatty tissue. There are no masses seen. Beveler sections are submitted A1 through A6. CG/pl Performed. ELECTROLYTES 2018-09-28 11:51:00 Test Item Value Reference Range Comments SODIUM (BEAKER) (test ldex=752) 141 meq/L 136-145 POTASSIUM (BEAKER) (test pdbw=123) 4.5 meq/L 3.5-5.1 CHLORIDE (BEAKER) (test epko=101) 108 meq/L 98-107 CO2 (BEAKER) (test rfiw=014) 28 meq/L 22-29 BUN AND [id number] 11:51:00 Test Item Value Reference Range Comments BLOOD UREA NITROGEN 15 mg/dL 7-21 (BEAKER) (test nuse=055) CREATININE (BEAKER) (test 0.70 mg/dL 0.57-1.25 kcwm=451) EGFR (BEAKER) (test 86 mL/min/1.73 sq m ESTIMATED GFR IS NOT itdb=0814) ACCURATE CREATININE CLEARANCE IN PREDICTING GLOMERULAR FILTRATION RATE. ESTIMATED GFR IS NOT APPLICABLE FOR DIALYSIS PATIENTS. [id number] 11:39:00 Test Item Value Reference Range Comments HEMOGLOBIN (BEAKER) (test aoex=953) 13.2 GM/DL 11.2-15.7 FL, CORPORATE COMPLIANCE MANAGER IN OR/30 MINUTE [id number] 07:40:00Reason for exam:->a -arm neededFLUOROSCOPIC UNIT UTILIZED. NO INTERPRETATION REQUESTED.
--- OUTSIDE RECORDS SUMMARY | 2018-12-19 23:08 | XMS REPORT | Clinical Summary ---
:1960 Author Organization [facility] Address [address] [place] [address] Care Team Providers Name Role Phone Bernabe [...] 06/01/2018 Hospital Encounter Eduardo Faria MD after 12/18/2017 Social History Tobacco Use Types Packs/Day Years [...] Taken Blood Pressure 117/63 10/01/2018 3:06 PM AUTOMATIC EMBROIDERY MACHINE TENDER Pulse 66 10/01/2018 3:06 PM AUTOMATIC EMBROIDERY MACHINE TENDER Temperature 36.1 C (97 F) 10/01/2018 3:06 PM AUTOMATIC EMBROIDERY MACHINE TENDER Respiratory Rate 18 10/01/2018 3:06 PM AUTOMATIC EMBROIDERY MACHINE TENDER Oxygen Saturation 100% 10/01/2018 3:06 PM AUTOMATIC EMBROIDERY MACHINE TENDER Inhaled Oxygen Concentration - - Weight 71.2 kg (157 lb) 09/30/2018 10:33 PM AUTOMATIC EMBROIDERY MACHINE TENDER Height 160 cm (5' 3") 09/30/2018 10:33 PM AUTOMATIC EMBROIDERY MACHINE TENDER Body Mass Index 27.81 09/30/2018 10:33 PM AUTOMATIC EMBROIDERY MACHINE TENDER Plan of Treatment Not on file Implants Implanted Type Area Photography Colorist Device Shelf Model / Identifier Expiration Serial / Date Lot K-Wire .[id number] - [id number] Fracture Right: LEOPOLDO:LEOPOLDO [id number] / Implanted: Qty: 1 on 06/01/2018 by Eduardo Faria MD /Fixatio Finger SPINE / n Procedures Procedure Name Priority Date/Time Associated Diagnosis Comments TISSUE EXAM AP Routine 09/30/2018 5:41 PM Results for this AUTOMATIC EMBROIDERY MACHINE TENDER procedure are in the results section. PANNICULECTOMY 09/30/2018 11:54 AM Abdominal panniculus AUTOMATIC EMBROIDERY MACHINE TENDER Case Notes 3 HRS HEMOGLOBIN Routine 09/28/2018 11:12 AM Results for this AUTOMATIC EMBROIDERY MACHINE TENDER procedure are in the results section. ELECTROLYTE PANEL Routine 09/28/2018 11:12 AM Results for this AUTOMATIC EMBROIDERY MACHINE TENDER procedure are in the results section. BUN AND CREATININE Routine 09/28/2018 11:12 AM Results for this AUTOMATIC EMBROIDERY MACHINE TENDER procedure are in the results section. FL SALES LEADER IN OR 30 Routine 06/01/2018 10:40 AM Results for this MINUTE INCREMENTS CDT procedure are in the results section. PROCEDURE W/ C-ARM 06/01/2018 9:45 AM Mallet finger of CDT right finger(s) Special Needs REQ. K-WIRES CLOSED REDUCTION 06/01/2018 9:45 AM CDT Mallet finger of right W/PINNING,FINGER finger(s) Special Needs MD REQ. K-WIRES after 12/18/2017 Results Tissue Exam (09/30/2018 5:41 PM AUTOMATIC EMBROIDERY MACHINE TENDER) Case Report Surgical Pathology Report Case: [id number] [facility] Authorizing Provider:Martínez King MDCollected: 09/30/2018 1741 [facility] Ordering Location: [facility] PERIOPERAT[facility] Received: 10/01/2018 0825 SERVICES Pathologist: Elroy Araya MD Specimen:Abdomen, ABDOMINAL PANNUS DIAGNOSIS A. ABDOMEN, PANNUS, EXCISION: [facility] - BENIGN SKIN AND UNREMARKABLE ADIPOSE TISSUE [facility] Signing Pathologist Direct Phone Line: [phone] CPT Code(s) 97084 [facility] CLINICAL HISTORY Abdominal panniculus [facility] SPECIMEN SOURCE Abdominal pannus [facility] GROSS DESCRIPTION The specimen is received in [facility] a formalin-filled container [facility] and labeled with the patient's information and labeled "abdominal pannus" and consists of two segments of fibrofatty tissue and damon-white skin both measuring 22 x 19 x 3 cm. The skin is unremarkable. Cut surface is predominantly fatty tissue. There are no masses seen. Home Health Nurse Licensed Practical sections are submitted A1 through A6. CG/pl MICROSCOPIC DESCRIPTION Performed. [facility] Specimen Tissue Performing Organization Address City[facility] Phone Number [address] [phone] [place] BUN and Creatinine (09/28/2018 11:12 AM AUTOMATIC EMBROIDERY MACHINE TENDER) BUN 15 7 - 21 mg/dL [facility] Creatinine 0.70 0.57 - 1.25 mg/dL [facility] EGFR 86Comment: ESTIMATED GFR IS mL/min/1.73 sq m [facility] NOT ACCURATE CREATININE [facility] CLEARANCE IN PREDICTING GLOMERULAR FILTRATION RATE. ESTIMATED GFR IS NOT APPLICABLE FOR DIALYSIS PATIENTS. Specimen Blood Performing Organization Address [facility] Phone Number [address] [phone] [place] Hemoglobin (09/28/2018 11:12 AM AUTOMATIC EMBROIDERY MACHINE TENDER) Hemoglobin 13.2 11.2 - 15.7 GM/DL [facility] Specimen Blood Performing Organization Address [facility] Phone Number [address] [address] [place] Electrolytes (09/28/2018 11:12 AM AUTOMATIC EMBROIDERY MACHINE TENDER) Sodium 141 136 - 145 meq/L [facility] Potassium 4.5 3.5 - 5.1 meq/L [facility] Chloride 108 (H) 98 - 107 meq/L [facility] CO2 28 22 - 29 meq/L [facility] Specimen Blood Performing Organization Address [facility]ode Phone Number [address] [address] [place]ENTER [place] Sheet Metal Duct Installer Helper in OR 30 minute increments (06/01/2018 10:40 AM CDT) Specimen Narrative Performed At FLUOROSCOPIC UNIT UTILIZED. NO INTERPRETATION REQUESTED. GE RIS Procedure Note Interface, External Ris In - 06/08/2018 7:41 AM CDT FLUOROSCOPIC UNIT UTILIZED. NO INTERPRETATION REQUESTED. Performing Organization Address City/State/Zipcode Phone Number GE RIS after 12/18/2017 Insurance Payer Benefit Plan / Subscriber ID Type Phone Address Group MEDICAID - MEDICAID [facility] xxxxxxxxx Medicaid Contracted [facility]GD CARE PLAN Advance Directives Patient has advance care planning documents, and code status on file. For more information, please contact:[address] [phone] Code Status Date Activated Date Inactivated Comments Full Code 09/30/2018 11:09 AM 09/30/2018 10:33 PM This code status was determined by: Patient Full Code 06/01/2018 6:58 AM 06/01/2018 5:50 PM This code status was determined by: Patient
[2018-12-19 23:40] LABS: Absolute Lymphocytes (CBC) 1.8 K/uL (0.7-4.9); Absolute Monocytes 0.5 K/uL (0.1-1.3); Absolute Neutrophil 4.4 K/uL (1.8-8.0); Basophils % 1.2 % (0-1.3); Eosinophils % 1.6 % (0-4.4); Lymphocytes % 25.7 % (15.3-44.8); MPV 8.6 fL (7.6-11.3); Monocytes % 6.7 % (3.3-12.3); RBC Red Blood Cell Count 4.41 M/uL (3.86-4.86)
[2018-12-19 23:50] LABS: Protime INR 0.92
[2018-12-20 00:04] LABS: ALT/SGPT 44 U/L (12-78); AST/SGOT 54 U/L (15-37); Albumin 3.6 g/dL (3.4-5.0); Alkaline Phosphatase 87 U/L (45-117); BUN Blood Urea Nitrogen 18 mg/dL (7-18); Bicarbonate 26 mmol/L (21-32); Bilirubin Direct < 0.1 mg/dL (0-0.2); Bilirubin Total 0.3 mg/dL (0.2-1.0); Glucose Level 87 mg/dL (74-106); Magnesium 2.1 mg/dL (1.8-2.4); NT PRO-BNP 95 pg/mL (<125); Potassium 3.5 mmol/L (3.5-5.1); Sodium Level 142 mmol/L (136-145); Troponin (Emerg Dept Use Only) < 0.02 ng/mL (0.0-0.045)
[2018-12-20] MEDS ORDERED: NITROGLYCERIN 0.4 MG/TAB SL ONE (00:35)
--- NOTE | 2018-12-20 01:18 | ER ---
Nurse's Notes [facility] Name: Amara Noe Age: 58 yrs Sex: Female : 1960 Arrival Date: 12/19/2018 Time: 23:09 Bed 15 Private MD: Diagnosis: Chest pain, unspecified Presentation: 12/19 23:09 Presenting complaint: Patient states: Pt reports she started having chest pain, that ea does not radiate about thirty minutes ago, pt stated she took an 81 brandon aspirin before EMS got there. Transition of care: patient was not received from another setting of care. Onset of symptoms was December 19, 2018. Risk Assessment: Do you want to hurt yourself or someone else? Patient reports no desire to harm self or others. Initial Sepsis Screen: Does the patient meet any 2 criteria? No. Patient's initial sepsis screen is negative. Does the patient have a suspected source of infection? No. Patient's initial sepsis screen is negative. Care prior to arrival: Medication(s) given: ASA, 81 mg. 23:09 Method Of Arrival: EMS: [facility] ea 23:09 Acuity: ANDREW 3 ea Historical: - Allergies: 23:17 Codeine; ea 23:17 steroids; ea 23:17 Premarin; ea 23:17 Sulfa (Sulfonamide Antibiotics); ea 23:17 Tetanus-Diphtheria Toxoids-Td; ea - Home Meds: 23:17 MUSCLE RELAXER [Active]; Aspirin Oral [Active]; ea - Immunization history:: Adult Immunizations up to date. - Social history:: Smoking status: Patient/guardian denies using tobacco. - Ebola Screening: : No symptoms or risks identified at this time. Screenin:18 Abuse screen: Denies threats or abuse. Nutritional screening: No deficits noted. ea Tuberculosis screening: No symptoms or risk factors identified. Fall Risk None identified. Assessment: 23:09 General: Appears uncomfortable, Behavior is calm, cooperative, appropriate for age. ea Pain: Complains of pain in mid-sternal area Pain does not radiate. Pain currently is 9 out of 10 on a pain scale. Quality of pain is described as sharp, Pain began 30 min ago. Is continuous. Neuro: Level of Consciousness is awake, alert, obeys commands, Oriented to person, place, time, situation. Cardiovascular: Patient's skin is warm and dry. Respiratory: Airway is patent Respiratory effort is even, unlabored, Respiratory pattern is regular, symmetrical. Derm: Skin is pink, warm \T\ dry. 12/20 00:40 Reassessment: Patient and/or family updated on plan of care and expected duration. Pain ea level reassessed. Patient is alert, oriented x 3, equal unlabored respirations, skin warm/dry/pink. Pt reports chest pain resolved, states all she feels is just a little pressure and pain with movement. 01:15 Reassessment: Patient and/or family updated on plan of care and expected duration. Pain ea level reassessed. Patient is alert, oriented x 3, equal unlabored respirations, skin warm/dry/pink. Pt verbalized she wanted to leave, she stated she has a cardiology appointment tomorrow for a stress test. 01:29 Reassessment: Patient and/or family updated on plan of care and expected duration. Pain ea level reassessed. Patient is alert, oriented x 3, equal unlabored respirations, skin warm/dry/pink. AMA form signed, pt verbalized the understanding of possible adverse effects of leaving AMA. 01:32 Reassessment: Patient and/or family updated on plan of care and expected duration. Pain ea level reassessed. Patient is alert, oriented x 3, equal unlabored respirations, skin warm/dry/pink. Pt left ED per wheelchair, accompanied by significant other. Vital Signs: 12/19 23:15 BP 149 / 68; Pulse 65; Resp 18; Temp 98.3; Pulse Ox 100% ; Weight 65.77 kg; Height 5 ea ft. 3 in. (160.02 cm); Pain 9/10; 12/20 00:30 BP 140 / 60; Pulse 60; Resp 18; Temp 98; Pulse Ox 100% ; Pain 0/10; ea 12/19 23:15 Body Mass Index 25.69 (65.77 kg, 160.02 cm) ea ED Course: 12/19 23:09 Patient arrived in ED. ea 23:10 Alex Montenegro NP is PHCP. pm1 23:10 Jacky Peters MD is Attending Physician. pm1 23:15 Triage completed. ea 23:15 Patient has correct armband on for positive identification. Bed in low position. Call ea light in reach. Side rails up X2. radiation monitor on. Pulse ox on. NIBP on. 23:18 Arm band placed on right wrist. Patient placed in an exam room, on pulse oximetry. ea 23:19 Patient maintains SpO2 saturation greater than 95% on room air. ea 23:21 Juliann Rudd, RN is Primary Nurse. ea 12/20 00:00 Inserted saline lock: 20 gauge in right antecubital area, using aseptic technique. ea 01:29 No provider procedures requiring assistance completed. IV discontinued, intact, ea bleeding controlled, No redness/swelling at site. Pressure dressing applied. 06:25 XRAY Chest (1 view) In Process Unspecified. EDMS Administered Medications: 00:36 Not Given (Patient Refused): Nitroglycerin 0.4 mg Sublingual once; every five minute if ea needed x3 Outcome: 01:32 AMA AMA form signed ea 01:35 Patient left the ED. ea Signatures: Dispatcher [employer] EDMS Alex Montenegro, PRADEEP LEATHER FITTER pm1 Juliann Rudd, RN RN ea
--- NOTE | 2018-12-20 01:18 | EDPHYS ---
Physician Documentation [facility] Name: Amara White Age: 58 yrs Sex: Female : 1960 Arrival Date: 12/19/2018 Time: 23:09 Bed 15 Private MD: ED Physician Jacky Peters HPI: 12/19 23:30 This 58 yrs old Female presents to ER via EMS with complaints of Chest Pain. pm1 23:30 The patient or guardian reports chest pain that is located primarily in the mid-sternal pm1 area. Onset: 30 minutes prior to arrival. The pain does not radiate. Associated signs and symptoms: Pertinent positives: nausea, shortness of breath, vomiting, Pertinent negatives: cough, palpitations, syncope. The chest pain is described as a pressure. Duration: The patient or guardian reports a single episode, that is still ongoing, but improving. Modifying factors: The symptoms are alleviated by nothing. the symptoms are aggravated by nothing. Severity of pain: in the emergency department the pain has improved is a 5 / 10. The patient has not experienced similar symptoms in the past. The patient has not recently seen a physician, has an appointment scheduled, tomorrow for preoperative clearance. Patient took an aspirin prior to calling the EMS. Historical: - Allergies: 23:17 Codeine; ea 23:17 steroids; ea 23:17 Premarin; ea 23:17 Sulfa (Sulfonamide Antibiotics); ea 23:17 Tetanus-Diphtheria Toxoids-Td; ea - Home Meds: 23:17 MUSCLE RELAXER [Active]; Aspirin Oral [Active]; ea - Immunization history:: Adult Immunizations up to date. - Social history:: Smoking status: Patient/guardian denies using tobacco. - Ebola Screening: : No symptoms or risks identified at this time. ROS: 23:30 Constitutional: Negative for fever, chills, and weight loss, Eyes: Negative for injury, pm1 pain, redness, and discharge, ENT: Negative for injury, pain, and discharge, Neck: Negative for injury, pain, and swelling. 23:30 Back: Negative for injury and pain, : Negative for injury, bleeding, discharge, and swelling, MS/Extremity: Negative for injury and deformity, Skin: Negative for injury, rash, and discoloration, Neuro: Negative for headache, weakness, numbness, tingling, and seizure. 23:30 Cardiovascular: Positive for chest pain, Negative for edema, orthopnea, palpitations. 23:30 Respiratory: Positive for shortness of breath, Negative for cough, wheezing. 23:30 Abdomen/GI: Positive for nausea and vomiting, Negative for abdominal pain, diarrhea, constipation. Exam: 23:30 Constitutional: This is a well developed, well nourished patient who is awake, alert, pm1 and in no acute distress. Head/Face: Normocephalic, atraumatic. Eyes: Pupils equal round and reactive to light, extra-ocular motions intact. Lids and lashes normal. Conjunctiva and sclera are non-icteric and not injected. Cornea within normal limits. Periorbital areas with no swelling, redness, or edema. ENT: Nares patent. No nasal discharge, no septal abnormalities noted. Tympanic membranes are normal and external auditory canals are clear. Oropharynx with no redness, swelling, or masses, exudates, or evidence of obstruction, uvula midline. Mucous membranes moist. Neck: Trachea midline, no thyromegaly or masses palpated, and no cervical lymphadenopathy. Supple, full range of motion without nuchal rigidity, or vertebral point tenderness. No Meningismus. 23:30 Cardiovascular: Regular rate and rhythm with a normal S1 and S2. No gallops, murmurs, or rubs. Normal PMI, no JVD. No pulse deficits. Respiratory: Lungs have equal breath sounds bilaterally, clear to auscultation and percussion. No rales, rhonchi or wheezes noted. No increased work of breathing, no retractions or nasal flaring. Abdomen/GI: Soft, non-tender, with normal bowel sounds. No distension or tympany. No guarding or rebound. No evidence of tenderness throughout. Back: No spinal tenderness. No costovertebral tenderness. Full range of motion. Skin: Warm, dry with normal turgor. Normal color with no rashes, no lesions, and no evidence of cellulitis. MS/ Extremity: Pulses equal, no cyanosis. Neurovascular intact. Full, normal range of motion. 23:30 Chest/axilla: Inspection: normal, Palpation: crepitus, is not appreciated, tenderness, that is mild, of the mid-sternal area, that partially reproduces the patient's complaints. 23:30 Neuro: Orientation: is normal, Mentation: is normal, Motor: is normal, moves all fours, Sensation: is normal, no obvious gross deficits. Vital Signs: 23:15 BP 149 / 68; Pulse 65; Resp 18; Temp 98.3; Pulse Ox 100% ; Weight 65.77 kg; Height 5 ea ft. 3 in. (160.02 cm); Pain 9/10; 12/20 00:30 BP 140 / 60; Pulse 60; Resp 18; Temp 98; Pulse Ox 100% ; Pain 0/10; ea 12/19 23:15 Body Mass Index 25.69 (65.77 kg, 160.02 cm) ea MDM: 12/19 23:11 Patient medically screened. pm1 12/20 00:45 ED course: Patient refused nitro SL because her chest pain has resolved.. pm1 01:13 Data reviewed: vital signs. Data interpreted: Pulse oximetry: on room air is 100 %. pm1 Interpretation: normal. Refusal of service: The patient/guardian displays adequate decision making capability and despite a detailed discussion of alternatives, benefits, risks, and consequences refuses: Admission to the hospital for further work-up and treatment, Patient wants to go to her preoperative appointment tomorrow for rectal surgery. Patient is seeing her casino dealer tomorrow for a stress test. 12/19 23:15 Order name: Basic Metabolic Panel pm1 12/19 23:15 Order name: CBC with Diff pm1 12/19 23:15 Order name: LFT's pm12/19 23:15 Order name: Magnesium pm1 12/19 23:15 Order name: NT PRO-BNP pm1 12/19 23:15 Order name: PT-INR pm1 12/19 23:15 Order name: Troponin (emerg Dept Use Only) pm1 12/19 23:48 Order name: CBC with Automated Diff; Complete Time: 00:26 EDMS 12/19 23:54 Order name: Protime (+INR); Complete Time: 00:26 EDMS 12/20 00:05 Order name: Basic Metabolic Panel; Complete Time: 00:26 EDMS 12/20 00:05 Order name: Liver (Hepatic) Function; Complete Time: 00:26 EDMS 12/20 00:05 Order name: Troponin (Emerg Dept Use Only); Complete Time: 00:26 EDMS 12/20 00:05 Order name: NT PRO-BNP; Complete Time: 00:26 EDNV 12/20 00:05 Order name: Magnesium; Complete Time: 00:26 EDNV 12/19 23:15 Order name: XRAY Chest (1 view) pm1 12/19 23:15 Order name: EKG; Complete Time: 23:17 pm1 12/19 23:15 Order name: Cardiac monitoring; Complete Time: 23:42 pm1 12/19 23:15 Order name: EKG - Nurse/Tech; Complete Time: 23:21 pm1 12/19 23:15 Order name: IV Saline Lock; Complete Time: 00:36 pm1 12/19 23:15 Order name: Labs collected and sent; Complete Time: 00:36 pm1 12/19 23:15 Order name: O2 Per Protocol; Complete Time: 23:42 pm1 12/19 23:15 Order name: O2 Sat Monitoring; Complete Time: 23:42 pm1 Administered Medications: 00:36 Not Given (Patient Refused): Nitroglycerin 0.4 mg Sublingual once; every five minute if ea needed x3 Disposition: 02:17 Co-signature as Attending Physician, Jacky Peters MD. rn Disposition: 12/20/18 01:18 Patient has left against medical advice. Impression: Chest pain, unspecified. - Patients states they are going to Home. - Condition is Undetermined. - Discharge Instructions: Nonspecific Chest Pain. Follow up: Emergency Department; When: As needed; Reason: Worsening of condition. Follow up: Private Physician; When: Upon discharge from the Emergency Department; Reason: Recheck today's complaints, Continuance of care, Re-evaluation by your physician. - Problem is new. - Symptoms have improved. Signatures: Dispatcher [employer] [facility] Jacky Peters MD MD rn Marinas, Patrick, PRADEEP SUPERVISOR BELT AND LINK ASSEMBLY pm1 Juliann Rudd RN RN ea Corrections: (The following items were deleted from the chart) 01:35 01:18 12/20/2018 01:18 Patients has left against medical advice. Impression: Chest ea pain, unspecified. Patient states they are going to Home. Condition is Undetermined. Follow up: Emergency Department; When: As needed; Reason: Worsening of condition. Follow up: Private Physician; When: Upon discharge from the Emergency Department; Reason: Recheck today's complaints, Continuance of care, Re-evaluation by your physician. Problem is new. Symptoms have improved. pm1
--- NOTE | 2018-12-20 08:19 | RAD REPORT ---
EXAM DESCRIPTION: RAD - Chest Single View - 12/19/2018 11:48 pm CLINICAL HISTORY: CHEST PAIN Chest pain. COMPARISON: No comparisons FINDINGS: Portable technique limits examination quality. The lungs are grossly clear. The heart is normal in size. No displaced fractures. IMPRESSION: No acute intrathoracic process suspected.
--- NOTE | 2018-12-20 08:45 | EKG ---
Test Date: 2018-12-19 Test Time: 23:16:52 It Business Analyst: HARVEYT MEASUREMENT RESULTS: Intervals: Rate: 59 MI: 222 QRSD: 90 QT: 432 QTc: 427 [place]: P: 21 MI: 222 QRS: 40 T: 30 INTERPRETIVE STATEMENTS: Sinus bradycardia with 1st degree AV block Otherwise normal ECG Compared to ECG 11/20/2018 02:07:48 Sinus arrhythmia no longer present Electronically Signed On 12-20-18 08:45:10 CDT by Param Reddy
== END 2018-12-20 01:35 | disposition left against medical advice (07) ==
LOC: ER 23:03
DX: R07.9 Chest pain, unspecified (principal); Z53.29 Procedure and treatment not carried out because of patient's decision for other reasons
CPT/HCPCS: 36415; 71045; 80048; 80076; 83735; 83880; 84484; 85025; 85610; 93005; 99285

== ENCOUNTER 2020-03-05 21:23 | Emergency (ER) | payer OTHER ==
--- OUTSIDE RECORDS SUMMARY | 2020-03-05 21:25 | XMS REPORT | Clinical Summary ---
:1960 Author Organization [facility] Address [address] [place] [address] Care Team Providers Name Role Phone Bernabe Quinones MD Primary Care Provider Allergies Active Allergy Reactions Severity Noted Date Comments Amoxicillin 06/11/2017 Codeine 06/11/2017 Pregabalin 06/11/2017 Other 06/11/2017 Bee's Other Food 07/08/2017 Steroids Conjugated Estrogens 06/11/2017 Sulfa (Sulfonamide Antibiotics) 7 Tetanus Vaccines And Toxoid 06/11/2017 Medications Medication Sig Dispensed Refills Start Date End Date Status estradiol JARED ONE PATCH 2 05/26/2017 Activ e (VIVELLE-DOT) 0.1 TOPICALLY TWICE mg/24 hr WEEKLY. [...] TK 1 T PO BID 0 05/25/2017 A ctive (ROBAXIN) 500 MG tablet mometasone (ELOCON) APPLY AA D BY 0 06/08/2017 Active 0.1 % cream TOPICAL ROUTE PRN triamcinolone JARED SPARINGLY AA 0 03/31/2017 Active (KENALOG) 0.025 % BID PRN cream FLUCELVAX QUAD IMMUNIZATION GIVEN 0 04/27/2017 Active [id number], PF, 60 mcg (15 mcg x 4)/0.5 [...] CANCER SCREENING 10/24/1979 BREAST CANCER SCREENING 2008 COLONOSCOPY SCREENING 2008 SHINGLES VACCINES (#1) 2008 INFLUENZA VACCINE 03/17/2020 Results Not on fileafter 03/05/2019 Advance Directives For more information, please contact: [phone] Type Date Recorded 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
--- OUTSIDE RECORDS SUMMARY | 2020-03-05 21:26 | XMS REPORT | Clinical Summary ---
:1960 Author Organization [facility] Address [address] [place] [address] Care Team Providers Name Role Phone America Quinones MD Primary Care Provider Allergies Active Allergy Reactions Severity Noted Date Comments Amoxicillin Nausea Only Low 05/28/2018 Pregabalin Rash Low 05/28/2018 Prednisone Anaphylaxis High 05/28/2018 All steriods Conjugated Estrogens Hives Medium 05/28/2018 Sulfa (Sulfonamide Antibiotics) Itching Low 8 Tetanus Vaccines And Toxoid Hives Medium 05/28/2018 Ketorolac Other (See Comments) Medium 05/28/2018 Migrain e Medications Medication Sig Dispensed Refills Start Date End Date Status estradiol (VIVELLE-DOT) Place 1 patch 0 Active 0.1 mg/24 hr patch onto the skin twice a week. multivitamin per tablet Take 1 tablet by 0 Active mouth daily. cyanocobalamin (VITAMIN Take 500 mcg by 0 Active B-12) 500 MCG tablet mouth daily. biotin 10,000 mcg Cap Take by mouth. 0 Active cholecalciferol, vitamin Take 5,000 Units 0 Active D3, 5,000 unit Tab by mouth daily. calcium carbonate-vit Take by mouth. 0 Active D3-min (CALCIUM 600 + MINERALS) 600 mg calcium- 200 unit Tab ascorbic acid, vitamin Take 1,000 mg by 0 Active C, (VITAMIN C) 1000 MG mouth daily. tablet ondansetron (ZOFRAN-ODT) Take 4 mg by 0 Active 4 MG disintegrating mouth every 8 tablet (eight) hours as needed for Nausea. estradiol (ESTRACE) 0.5 Take 0.5 mg by 0 Active MG tablet mouth daily. Active Problems Problem Noted Date Abdominal pannus 09/30/2018 Status post panniculectomy 09/30/2018 Acquired mallet finger, right 06/01/2018 Social History Tobacco Use Types Packs/Day Years [...] Signs Not on file Plan of Treatment Not on file Implants Implanted Type Area [employer]ist Device Shelf Model / Identifier Expiration Serial / Date Lot K-Wire [id number] - [id number] Fracture Right: [employer]ER [id number] / Implanted: Qty: 1 on 06/01/2018 by Eduardo Faria MD /F ixatio Finger SPINE / n Results Not on fileafter 03/05/2019 Insurance Payer Benefit Plan / Subscriber ID Type Phone Address Group MEDICAID - MEDICAID [facility] COMM STAR xxxxxxxxx Medicaid Contracted [facility] CARE PLAN Advance Directives Patient has advance care planning documents, and code status on file. For more information, please contact:[address] [phone] Code Status Date Activated Date Inactivated Comments Full Code 09/30/2018 11:09 AM 09/30/2018 10:33 PM This code status was determined by: Patient Full Code 06/01/2018 6:58 AM 06/01/2018 5:50 PM This code status was determined by: Patient
--- OUTSIDE RECORDS SUMMARY | 2020-03-05 21:27 | XMS REPORT | Continuity of Care Document ---
:1960 Author Organization [facility] t Address [address] [place] [address] Care Team Providers Name Role Phone Joni TEIXEIRA Primary Care Physician Singer PACK Attending Clinician WINOCOUR Attending Clinician Unavailable PANCHOLY Attending Clinician Unavailable SHASHI Attending Clinician Unavailable WINOCOUR Admitting Clinician Unavailable Payers Payer Name Policy Type Policy Number Effective Date Expiration Date S ource Problems Condition Condition Condition Status Onset Resolution Last Treating Co mments Source Name Details Category Date Date Treatment Clinician Date Abdominal Abdominal Disease Active [facility] Status Status Disease Active [facility] post post [facility]14 [facility] panniculec panniculec 00:00: Me dical perfecto perfecto 00 Center Acquired Acquired Disease Active 2017-08 [facility] - finger, finger, 00:00: Medical right right 00 Center History of History of Problem Resolve Univers chlamydia chlamydia HL7.CCDAR2 d [facility]y of [place] [facility] History of History of Problem Resolve Univers cyst of cyst of HL7.CCDAR2 d ity of breast breast [place] [facility] History of History of Problem Resolve Univers Degenerati Degenerati HL7.CCDAR2 d ity of ve ve [place] disorder disorder Physic i of bone of bone ans History of History of Problem Resolve Univers scoliosis scoliosis HL7.CCDAR2 d [facility] [place] [facility] History of History of Problem Resolve Univers gonorrhea gonorrhea HL7.CCDAR2 d [facility] [place] [facility] History of History of Problem Resolve Univers 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 Ph ysici y syndrome y syndrome an s Rectocele, Rectocele, Problem Active U nivers female female HL7.CCDAR2 [facility] [place] [facility] Urinary Urinary Problem Active Univers incontinen incontinen HL7.CCDAR2 ity of ce ce [place] [facility] Vaginal Vaginal Problem Active Univers pain pain HL7.CCDAR2 it[facility] of [place] [facility] Cystocele Cystocele Problem Active Uni vers HL7.CCDAR2 [facility]y of [place] [facility] 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 HL7.CCDAR2 ity of ce urge ce urge [place] and stress and stress Ph ysici ans Atrophic Atrophic Problem Active Unive rs vaginitis vaginitis HL7.CCDAR2 [facility] [place] [facility] Urinary Urinary Problem Active Univers frequency frequency HL7.CCDAR2 [facility] [place] [facility] Urinary Urinary Problem Active Univers urgency urgency HL7.CCDAR2 [facility] [place] [facility] History of History of Problem Resolve Univers chronic chronic HL7.CCDAR2 d ity of pain pain [place] [facility] History of History of Problem Resolve Univers depression depression HL7.CCDAR2 d [facility] of [place] [facility] History of History of Problem Resolve Univers Incontinen Incontinen HL7.CCDAR2 d ity of ce ce [place] [facility] History of History of Problem Resolve Univers post post HL7.CCDAR2 d [place]y of traumatic traumatic [place] stress stress [place]ici disorder disorder ans Allergies, Adverse Reactions, Alerts Allergy Allergy Status Severity Reaction(s) Onset Inactive Treating Comm ents Source Name Type Date Date Clinician nell DA Active U [facility] 05-10 [place] 00:00: [facility] [place] are [facility] alcohol FA Active MO [facility] 05-10 [place] 00:00: [facility] [address] CLEANING DA Active MO 2019-0 [facility] -24 [place] S 00:00: [facility] [address] HAND DA Active MO 2018-0 [facility] SANITIZE 05-10 [place] R 00:00: Healthc 00 are [facility] st PERFUMES DA Active MO 2019-0 [facility] -24 [place] 00:00: [facility] [address] STEROIDS DA Active SV 2018-0 [facility] 24 [place] 00:00: Health 00 are [facility] st codeine DA Active U 2018- [facility] 9-17 [place] 00:00: Healthc 00 are [facility] st codeine DA Active U 2018-0 [facility] 5-06 [place] 00:00: Healthc 00 are [facility] st Amoxicil Drug Active Nausea Only 2017-[address] [facility] kathy Intolera 0-12 [facility] - nce 00:00: Medical 00 [place] Preg[place]al Propensi Active Rash 2017-[address] [facility] in ty to 0-12 [facility] - adverse 00:00: Medical reaction 00 [place] s Predniso Propensi Active Anaphylaxis 2017-[address] ne ty to 0-12 steriods [facility] - adverse 00:00: Medical reaction 00 [place] Conjugat Drug Active Hives 2017-[address] [facility] ed Allergy 0-12 [facility] - Estrogen 00:00: Medical s 00 Center Sulfa Drug Active Itching 2017- [facility] (Sulfona Allergy 0-12 [facility] - mide 00:00: Medical Antibiot 00 Center ics) Tetanus Drug Active Hives 2017-[address] [facility] Vaccines Allergy 0-12 [facility] - And 00:00: Medical Toxoid 00 Center Ketorola Drug Active Other (See 2017-[address] c Intolera Comments) 0-12 [facility] nce 00:00: Medical 00 Center Other Propensi Active 2016-08 Steroids [place] Food ty to 1-22 Methodi adverse 00:00: st reaction 00 s Amoxicil Propensi Active 2016-08 [place] kathy ty to 0-26 [facility] adverse 00:00: st reaction 00 s to drug Codeine Propensi Active 2016-08 [place] ty to 0-26 Methodi adverse 00:00: st reaction 00 s to drug Pregabal Propensi Active 2016-08 [place] in ty to 0-26 [facility] adverse 00:00: st reaction 00 s to drug Other Propensi Active 2016-08 Bee's [place] ty to 0-26 [facility] adverse 00:00: st reaction 00 s Conjugat Propensi Active 2016-08 [place] ed ty to 0-26 [facility] Estrogen adverse 00:00: st s reaction 00 s to drug Sulfa Propensi Active 2016-08 [place] (Sulfona ty to 0-26 Methodi mide adverse 00:00: st Antibiot reaction 00 ics) s to drug Tetanus Propensi Active 2016-08 [place] Vaccines ty to 0-26 Methodi And adverse 00:00: st Toxoid reaction 00 s to drug Albutero drug Active Univers l AERS allergy [facility] [place] [facility] Amoxicil drug Active Univers kathy TABS allergy [facility] [place] [facility] Codeine drug Active Univers Derivati allergy ity of [facility] Physici ans Lyrica drug Active Univers CAPS allergy [facility] [place] [facility] PredniSO drug Active Univers NE TABS allergy [facility] [place] [facility] Premarin drug Active Univers allergy [facility] [place] [facility] Sulfa drug Active Univers Drugs allergy [facility] [place] [facility] TETANUS drug Active Univers allergy [facility] of [place] [facility] Bee allergy Active Univers sting to ity of [facility] e Physici ans Family History Family Member Diagnosis Comments Start Date Stop Date Source Sib[place] Family history of Univers ity of bipolar disorder [place] [facility] Sib[place] Family history of Univers ity of malignant neoplasm of Sean as Physicians colon Father Family history of Univers ity of hepatic cirrhosis [place] P [facility] Father Family history of Univers ity of schizophrenia [place] Physi cians Sister Family history of Univers ity of cardiac disorder [place] [facility] natural daughter Family history of U niversity of Heart defect [place] Physic ians natural daughter Family history of U niversity of autoimmune disorder [place] [facility] natural daughter Family history of U niversity of lupus erythematosus [place] [facility] Natural brother Colon cancer [place] [facility] Natural mother Brain cancer [place] [facility] Social History Social Habit Start Date Stop Date Quantity Comments Source Sex Assigned At [facility] Smoking Status Start Date Stop Date Source Never smoker [facility] Medications Ordered Filled Start Stop Current Ordering Indication Dosage Frequency Signature Comments Components Source Medication Medication Date Date Medication? Clinician (SIG) Name Name estradiol 2019- Yes .5mg QD Take 0.5 [facility] (ESTRACE) 2-08 mg by [facility] - 0.5 MG 13:40: mouth Medical tablet 08 daily. [place] multivitami 2017-08 Yes 1{tbl} QD Take [address] n per 0-12 tablet by [facility] - tablet 08:56: mouth Medical 35 daily. [place] cyanocobala 2017-08 Yes 500ug QD Take [address] min 0-12 mcg by [facility] - (VITAMIN 08:56: mouth Medical B-12) 500 35 daily. [place] MCG tablet biotin 2017-08 Yes Take by [facility] 10,000 mcg 0-12 mouth. [facility] - Cap 08:56: Medical 35 [place] cholecalcif 2017-08 Yes 5000U QD Take 5,[address] beatriz, 0-12 Units by LuSybari - vitamin D3, 08:56: mouth Medic al 5,000 unit 35 daily. [place] Tab calcium 2017-08 Yes Take by [facility] carbonate-v 0-12 mouth. [facility] - it D3-min 08:56: Medical (CALCIUM 35 [place] 600 + MINERALS) 600 mg calcium- 200 unit Tab ascorbic 2017-08 Yes 1000mg QD Take 1,[address] acid, 0-12 mg by LuSybari - vitamin C, 08:56: mouth Medica l (VITAMIN C) 35 daily. [place] 1000 MG tablet ondansetron 2017-08 Yes 4mg Take [address] (ZOFRAN-ODT 0-12 by mouth Luke s - ) 4 MG 08:56: every 8 Medical disintegrat 35 (eight) Cente r ing tablet hours as needed for Nausea. estradiol 2017-08 Yes 1{patch Q.5W Place [address] (VIVELLE-DO 0-12 } patch onto kes - T) 0.1 08:56: the skin Medical mg/24 hr 34 twice a Center patch week. estropipate Yes Postmenopau TK 1 T PO Galan (OGEN) 3 MG 2-16 fatimah BID Methodi tablet 00:00: symptoms st 00 estradiol 2016-08 Yes TK 1 T PO Anita carobrinda (ESTRACE) 1 0-23 TWICE Methodi MG tablet 00:00: WEEKLY st 00 mometasone 2016-08 Yes APPLY AA D H ounaman (ELOCON) 0-23 BY TOPICAL Metho di 0.1 % cream 00:00: ROUTE PRN s t 00 estradiol 2016-08 Yes JARED ONE [place] (VIVELLE-DO 0-10 PATCH Methodi T) 0.1 00:00: TOPICALLY st mg/24 hr 00 TWICE WEEKLY. meloxicam 2016-08 Yes TK 1 T PO Anita ston (MOBIC) 15 0-10 QD Methodi mg tablet 00:00: st 00 losartan 2016-08 Yes TK 1 T PO [place] (COZAAR) 50 0-09 QD [facility] MG tablet 00:00: st 00 methocarbam 2016-08 Yes TK 1 T PO [place] ol 0-09 BID Methodi (ROBAXIN) 00:00: st 500 MG 00 tablet PNEUMOVAX Yes IMMUNIZATI [place] 23 25 9-11 ON GIVEN Methodi mcg/0.5 mL 00:00: st syringe 00 vaccine FLUCELVAX Yes IMMUNIZATI [place] QUAD 9-11 ON GIVEN Methodi , 00:00: st PF, 60 mcg 00 (15 mcg x 4)/0.5 mL syringe IM Injection triamcinolo Yes JARED [place] ne 8-15 SPARINGLY Methodi (KENALOG) 00:00: AA BID PRN st 0.025 % 00 cream Aspir-81 Aspir-81 Yes Univers TBEC TBEC [facility] [place] [facility] Estradiol Estradiol Yes Unive rs TABS TABS ity of [place] [facility] Estradiol 2 Estradiol 2 Yes U nivers MG Oral MG Oral ity of Tablet Tablet [place] [facility]ici ans Estropipate Estropipate Yes U nivers TABS TABS ity of [place] [facility]ici ans Acetaminoph Acetaminoph Yes U nivers en-Codeine en-Codeine ity of #3 300-30 #3 300-30 [place] MG Oral MG Oral Physici Tablet Tablet ans Flintstones Flintstones Yes U nivers /My First /My First ity o f CHEW CHEW [place] [facility]ici ans Biotin Biotin Yes Univers 97999 MCG 28018 MCG ity o f Oral Tablet Oral Tablet [place] Physici ans B-12 500 B-12 500 Yes Univers MCG Oral MCG Oral ity of Tablet Tablet [place] [facility] Vitamin D3 Vitamin D3 Yes Uni vers 5000 UNIT 5000 UNIT ity o f Oral Oral [place] Capsule Capsule Physici ans Calcium Calcium Yes Univers 600+D3 600+D3 ity of 600-800 600-800 [place] MG-UNIT MG-UNIT Physici Oral Tablet Oral Tablet a ns Ascorbic Ascorbic Yes Univers Acid TABS Acid TABS ity o f [place] [facility]ici ans Lecithin Lecithin Yes Univers 500 MG CAPS 500 MG CAPS i ty of [place] [facility]ici ans Collagen Collagen Yes Univers 500 MG CAPS 500 MG CAPS i ty of [place] [facility]ici ans Vital Signs Vital Name Observation Time Observation Value Comments Source BP Systolic 2018-02-18 150 mm[Hg] Location: [facility] 14:42:00 Position: [place] Physician s Sitting BP Diastolic 2018-02-18 99 mm[Hg] Location: [facility] 14:42:00 Position: [place] Physician s Sitting Weight 2018-02-18 156 [lb_av] [facility] 14:42:00 [place] [facility] s Body Mass Index 2018-02-18 27.63 kg/m2 University o f Calculated 14:42:00 [place] Physician s Height 2018-02-18 63 [in_us] [facility] 14:42:00 [place] Phys[facility] s Heart Rate 2018-02-18 88 /min [facility] 14:42:00 [place] Phys[facility] s BP Systolic 2018-02-09 132 mm[Hg] Location: [facility] 16:36:00 Position: [place] Physician s Sitting BP Diastolic 2018-02-09 85 mm[Hg] Location: [facility] 16:36:00 Position: [place] Physician s Sitting BP Systolic 2018-02-09 173 mm[Hg] Location: [facility] 15:18:00 Position: [place] Physician s Sitting BP Diastolic 2018-02-09 134 mm[Hg] Location: [facility] 15:18:00 Position: [place] Physician s Sitting Height 2018-02-09 63 [in_us] [facility] 15:18:00 [place] Physician s Weight 2018-02-09 156 [lb_av] [facility] 15:18:00 [place] Phys[facility] s Body Mass Index 2018-02-09 27.63 kg/m2 University o f Calculated 15:18:00 [place] [facility] s Procedures Procedure Date / Time Performing Clinician Source Performed [QLH] CULTURE, URINE, 2018-02-18 00:00:00 [facility] ROUTINE Physicians History of Cyst [facility] xa excision Physicians History of Gastric [facility] bypass surgery Physicians History of Hysterectomy [facility] Physicians History of Urethropexy [facility] Physicians Plan of Care Planned Activity Planned Date Details Comments Source Future Scheduled 2020-03-17 INFLUENZA VACCINE Monik parry [facility] Test 00:00:00 [code = INFLUENZA VACCINE] Future Scheduled 2008 BREAST CANCER Galan Me [facility] Test 00:00:00 SCREENING [code = BREAST CANCER SCREENING] Future Scheduled 2008 COLONOSCOPY SCREENING Carlos castro [facility] Test 00:00:00 [code = COLONOSCOPY SCREENING] Future Scheduled 2008 SHINGLES VACCINES Monik n [facility] Test 00:00:00 (#1) [code = SHINGLES VACCINES (#1)] Future Scheduled 1979-10-24 Screening for Adama Dyer [facility]odist Test 00:00:00 malignant neoplasm of cervix (procedure) [code = 309431900] Encounters Start End Encounter Admission Attending Care Care Encounter Source Date/Time Date/Time Type Type Clinicians Facility Department ID 2020-03-05 2020-03-05 [facility] [id number] 08:55:29 11:11:00 Brooks Cevallos [id number] [place] [id number] Cla[place] [id number] 2018-02-18 2018-02-18 Appointmen ANA [facility] [id number] Univers 14:00:00 14:00:00 t; Francheska ARANA M.D. [facility] Abrahan Bruce ans 2018-02-09 2018-02-09 [facility] [id number] Univers 15:10:00 15:10:00 t; Francheska MARIE M.D. [facility] FRANK [place] Abrahan Bruce ans Results Test Description Test Time Test Comments Results Result [facility] e Comments SURGICAL SPECIMENS 2019-05-11 16:34:00 --------RUN DATE: 05/11/19 [facility] [place] - LAB PAGE 1 RUN TIME: 1634 Specimen Inquiry RUN USER: INTERFACE --------[id number] U #: [id number] AGE/SX: 58/F ROOM: RE05/10/19REG DR: John Paul Lewis MD : 56 BED: DIS: STATUS: [facility] TLOC: -------- SPEC #: [id number] RECD: 05/10/19 STATUS: ERIC RE #: [id number] KEVIN: 05/10/190000 SUBM DR: JohnP aul Lewis MD ENTERED: 05/10/19 SP TYPE: SURG OTHR DR: Bernabe Quinones MD ORDERED: PATHGM3, PATH SPEC, H E STAIN TISSUES: A. GALLBLADDER - Gallbladder CLINICAL HISTORY Diagnosis/Clinical Data: Calculus of gallbladder without cholecystitis without obstruction Operative Procedure: Laparoscopic cholecystectomy FINAL DIAGNOSIS Gallbladder, laparoscopic cholecystectomy: Chronic Cholecystitis Cholelithiasis Cholesterolosis Electronically signed by: Corinne Rain MD GROSS DESCRIPTION The laboratory receives, in a partially formalin-filled container labeled "gallbladder", a 7.5 x 2.5 x 1.5 cm, previously disrupted, damon gallbladder. The cystic duct is patent at its margin. No lymph node is identified by the PA. The serosa is damon and smooth. The wall has an average thickness of 0.3 cm. The mucosa is damon-red and velvety; it has a moderate amount of damon-yellow stippling. There is a 1.5 x 1.2 x 1.0 cm damon-green, firm, ovoid calculus. No mass or lesion is present. [facility] Bailiff sections are submitted by the JOSÉ in cassette A1. TR 05/10/2019 05:47 PM MICROSCOPIC DESCRIPTION Sections from the gallbladder show Rokitansky-Aschoff sinuses and thick muscularis propria. There are increased lymphocytes and the papillae, and some papillae contain foamy histiocytes. There is no malignancy. Signed SIGNATURE ON FILE Selvin Rain 05/11/19 1634 -------- END OF REPORT BASIC METABOLIC PANEL 2019-05-04 15:07:00 Test Item Value Reference Range Interpretation Comme nts SODIUM (test code = NA) 138 mmol/L 135-145 N POTASSIUM (test code = K) 4.1 mmol/L 3.6-5.0 N CHLORIDE (test code = CL) 102 mmol/L 101-111 N CARBON DIOXIDE (test code = 27 mmol/L 21-31 N CO2) GLUCOSE (test code = GLU) 82 mg/dl 70-100 N BLOOD UREA NITROGEN (test 19 mg/dl 6-20 N code = BUN) GLOMERULAR FILTRATION RATE >=60 max estimate >60 The estimated glomerular (test code = GFR) filtration rate is computed usingpatient ra ce, age (>18), sex, and serum creatinine. If anyof the needed data dipak ments are missing the Lab oratory cannot compute an estimation of the glomerul ar filtration rate. CREATININE (test code = 0.79 mg/dL 0.44-1.03 N CREAT) CALCIUM (test code = CA) 8.7 mg/dL 8.5-10.5 N CBC W/AUTO [id number] 14:53:00 Test Item Value Reference Range Interpretation Comments WHITE BLOOD CELL (test code = 6.8 x10 3/uL 3.2-11.5 N WBC) RED BLOOD CELL (test code = 4.36 x10(6)/m 3.70-5.10 N RBC) HEMOGLOBIN (test code = HGB) 13.3 g/dL 12.0-15.0 N HEMATOCRIT (test code = HCT) 39.8 % 35.7-44.8 N MEAN CELL VOLUME (test code = 91 fL 80-100 N MCV) MEAN CELL HGB (test code = MCH) 30.6 pg 26.2-33.8 N MEAN CELL HGB CONCENTRATION 33.5 g/dL 30.0-34.0 N (test code = MCHC) RED CELL DISTRIBUTION WIDTH 14.4 % 11.3-14.5 N (test code = RDW) PLATELET COUNT (test code = 265 x10 3/uL 130-408 N PLT) MEAN PLATELET VOLUME (test code 8.3 fl 6.4-10.5 N = MPV) NEUTROPHIL % (test code = NT%) 57.7 % 40.0-70.0 N LYMPHOCYTE % (test code = LY%) 31.0 % 20-40 N MONOCYTE % (test code = MO%) 8.3 % 1-10 N EOSINOPHIL % (test code = EO%) 2.1 % 1.0-5.0 N BASOPHIL % (test code = BA%) 0.9 % 0.0-1.0 N NEUTROPHIL # (test code = NT#) 3.9 x10 3/uL 1.6-7.2 N LYMPHOCYTE # (test code = LY#) 2.10 x10 3/uL 1.1-2.7 N MONOCYTE # (test code = MO#) 0.6 x10 3/uL 0.3-0.8 N EOSINOPHIL # (test code = EO#) 0.1 x10 3/uL 0.0-0.5 N BASOPHIL # (test code = BA#) 0.1 x10 3/uL 0.0-0.1 N - XR CHEST 2 [id number] 10:50:00Patient Name: RENZO REVELES Unit No: [id number] EXAMS: CPT: [id number] XR CHEST 2 V 17850 Clinical History: SHORTNESS OF BREATH. Exam: - XR CHEST 2 V Technique and Comparison: PA and lateral chest radiographs performed 04/20/2019 are compared to prior study dated 12/20/2018. Findings: No evidence of focal airspace consolidation, pleural effusion, or pneumothorax. The cardiomediastinal silhouette is within normal limits. Multilevel flowing osteophytosis of the visualized spine. Impression: No focal airspace consolidation is identified of the lungs radiographically. at 1050 Reported and signed by: Lamar Vargas MD CC: Bernabe Quinones MD; Quincy Tate Technologist: Kirsten Haque Time: DAP (Gym2): Air Kerma (mGy): Trscr Dt/Tm: 04/20/2019 (1050) by:[email or web address] Orig Print D/T: S: 04/20/2019 (1053) BATCH NO: N/A Name: RENZO REVELES [facility] Phys: S [id number] - Quincy Tate S [address] : 1960 Age: 58 Sex: F [place] [address] Loc: N.RAD Exam Date: 04/20/2019 Status: REG CLI PH: FAX: PAGE 1 Signed Report- US ABDOMEN [id number] 13:00:00Patient Name: RENZO REVELES Unit No: [id number] EXAMS: CPT: [id number] US ABDOMEN LTD 26035 RIGHT UPPER QUADRANT ULTRASOUND TECHNIQUE: Real-time grayscale andcolor-flow ultrasound imaging performed of the right upper quadrant. COMPARISON:September 16, 2018 HISTORY: Gallstones FINDINGS: Solitary gallstone in the gallbladder. No pericholecystic fluid or wall thickening is seen. Liver span measures 19 cm. No focal hepatic lesion. Partially visualized pancreas unremarkable. Right kidney measures normal in size. No hydronephrosis. No free fluid within the abdomen. The abdominal aorta and IVC where seen are unremarkable. IMPRESSION: Cholelithiasis. No pericholecystic fluid is evident. at 1300 Reported and signed by: Tanner Glez MD CC: Bernabe Quinones MD Technologist: Carlos Enrique Patel Probe: Trscr Dt/Tm: 03/26/2019 (1300) by:[email or web address] Orig Print D/T: S: 03/26/2019 (9803) BATCH NO: N/A Name: RENZO REVELES [facility] Phys: Bernabe Boston MD [address] : 1960 Age: 58 Sex: F [place] [address] [facility] Exam Date: 03/26/2019 Status: REG CLI PH: FAX: PAGE 1 Signed ReportTISSUE [id number] 14:36:00Surgical Pathology Report Case: [id number] Authorizing Provider: Martínez King MD Collected: 09/30/2018 1741 Ordering Location: [facility] Received: 10/01/2018 0825 SERVICES Pathologist: Elroy Araya MD Specimen: Abdomen, ABDOMINAL PANNUS A. ABDOMEN, PANNUS, EXCISION: - BENIGN SKIN AND UNREMARKABLE ADIPOSE TISSUE Signing Pathologist Direct Phone Line: [phone] signed by Elroy Araya MD on 10/04/2018 at 2:36 [id number] panniculusAbdominal pannusThe specimen is received in a formalin-filled container and labeled with the patient's information and labeled "abdominal pannus" and consists of two segments of fibrofatty tissue and damon-white skin both measuring 22 x 19 x 3 cm. The skin is unremarkable. Cut surface is predominantly fatty tissue. There are no masses seen. District [facility] Bailiff sections are submitted A1 through A6. CG/pl Performed.[id number] 11:51:00 Test Item Value Reference Range Interpretation Comments SODIUM (BEAKER) (test code = 381) 141 meq/L 136-145 POTASSIUM (BEAKER) (test code = 4.5 meq/L 3.5-5.1 379) CHLORIDE (BEAKER) (test code = 382) 108 meq/L 98-107 H CO2 (BEAKER) (test code = 355) 28 meq/L 22-29 BUN AND [id number] 11:51:00 Test Item Value Reference Range Interpretation Comments BLOOD UREA NITROGEN 15 mg/dL 7-21 (BEAKER) (test code = 354) CREATININE (BEAKER) 0.70 mg/dL 0.57-1.25 (test code = 358) EGFR (BEAKER) (test 86 mL/min/1.73 ESTIMA SHREYA GFR IS code = 1092) sq m NOT ACCURATE CREATININE CLEARANCE IN PREDICTING GLOMERULAR FILTRATION RATE . ESTIMATED GFR I S NOT APPLICABLE FOR DIALYSIS PATIEN TS. [id number] 11:39:00 Test Item Value Reference Range Interpretation Comments HEMOGLOBIN (BEAKER) (test code = 13.2 GM/DL 11.2-15.7 410) FL, CYTOLOGIST IN OR/30 MINUTE [id number] 07:40:00Reason for exam:->a-arm neededFLUOROSCOPIC UNIT UTILIZED. NO INTERPRETATION REQUESTED. [[facility]] CULTURE, URINE, [id number] 17:00:01 Test Item Value Reference Range Interpretation Comments FINAL REPORT (test code = FINAL No Growth REPORT) [facility] Physicians
--- OUTSIDE RECORDS SUMMARY | 2020-03-05 21:27 | XMS REPORT | Summary of Care ---
:1960 Author Organization [facility] Address [address] [place] [address] Care Team Providers Name Role Phone America Quinones Primary Care Provider Reason for Referral Radiology Services (Routine) Status Reason Specialty Diagnoses / Referred By Referred To Procedures Contact Contact New Request Diagnostic Diagnoses Suspected Covid-19 Virus Infection Brooks Montez, Radiology Procedures XR CHEST 1 VW COVID XR CHEST 1 VW DO [address] [facility]. RT [address] [place] [address] Reason for Visit Reason Comments Shortness of Breath Sore Throat Body Aches Auth/Cert Status Reason Specialty Diagnoses / Referred By Referred To Procedures Contact Contact Emergency Medicine Ad[facility] Em ergency Dept [address] [place] [address] Fax: Encounter Details Date Type Department Care Team Description 03/05/2020 Emergency ADC-Emergency Brooks Montez DO Acute bronchitis due to COVID-19 virus ( Primary Dx); Department [address] [facility]. Suspected Covid-[address] Virus Infection [address] [place] [address] [place] [address] [place] [address] [phone] Allergies Active Allergy Reactions Severity Noted Date Comments Albuterol Shortness of Breath 03/01/2017 Amoxicillin Rash 02/24/2017 Bee Sting / Venom Shortness of Breath 03/01/2017 Codeine Nausea and/or Vomiting 02/24/2017 Corticosteroids (Glucocorticoids) Hives 017 Pregabalin Rash 02/24/2017 Mold Unknown - See comments 03/05/2020 Red Dye Anaphylaxis 03/05/2020 Sulfa (Sulfonamide Antibiotics) Hives 7 Tetanus And Diphther. Tox (Pf) Hives 02/24/2017 documented as of this encounter (statuses as of 03/05/2020) Medications Medication Sig Dispensed Refills Start Date End Date Status OXYGEN-AIR DELIVERY 0 Active SYSTEMS (WALKABOUT 3 OXYGEN SYSTEM MISC)Indications: Essential hypertension triamcinolone 0.025 % Apply to 0 Active ointmentIndications: area(s) 2 (two) Essential hypertension times daily. MOMETASONE FUROATE, 0 Active BULK, MISCIndications: Essential hypertension Cholecalciferol, Take by mouth. 0 03/01/2017 Active Vitamin D3, (VITAMIN D3) 5,000 unit tablet cyanocobalamin, vitamin Take by mouth 2 0 7 Active B-12, 5,000 mcg TbDL (two) times daily. biotin 10,000 mcg TbDL Take by mouth. 0 03/01/2017 Active ferrous sulfate 325 mg Take 1 tablet by 0 03/01/2017 Active (65 mg iron) tablet mouth daily. calcium carbonate Take 1 tablet by 0 03/01/2017 Active (CALCIUM 500) 500 mg mouth daily. calcium (1,250 mg) tablet Magnesium 250 mg Tab Take by mouth. 0 03/01/2017 Active hydrOXYzine 50 mg Take 1 tablet by 90 tablet 1 04/21/2017 Active tabletIndications: mouth 3 (three) Anxiety times daily as needed for Anxiety. meloxicam 15 mg Take 1 tablet by 30 tablet 1 04/21/2017 Active tabletIndications: mouth daily. Osteoarthritis, unspecified osteoarthritis type, unspecified site benzonatate 100 mg Take 1 capsule 14 capsule 0 03/05/2020 Active capsuleIndications: by mouth 3 Acute bronchitis due to (three) times COVID-19 virus daily as needed for Cough. chlorpheniramine 4 mg Take 1 tablet by 30 tablet 0 03/05/2020 Active tabletIndications: mouth every 6 Acute bronchitis due to (six) hours as COVID-19 virus needed for Allergies or Runny nose. [id number]-[id number]-[id number] Take as directed 90 tablet 0 03/05/2020 Active 333-133-8.3 mg for daily dose. TabIndications: Acute bronchitis due to COVID-19 virus documented as of this encounter (statuses as of 03/05/2020) Active Problems Problem Noted Date Essential hypertension 03/30/2017 documented as of this encounter (statuses as of 03/05/2020) Social History Tobacco Use Types Packs/Day Years Used Date Never Smoker Sex Assigned at Date Recorded Not on file Job Start Date Occupation Industry Not on file Not on file Not on file Travel History Travel Start Travel End No recent travel history available. COVID-19 Exposure Response Date Recorded In the last month, have you been in contact with No / Unsure 03/05/2020 8:47 AM CDT someone who was confirmed or suspected to have Coronavirus / COVID-19? documented as of this encounter Last Filed Vital Signs Vital Sign Reading Time Taken Comments Blood Pressure 144/90 03/05/2020 8:54 AM CDT Pulse 66 03/05/2020 8:54 AM CDT Temperature 36.7 C (98.1 F) 03/05/2020 8:54 AM CDT Respiratory Rate 20 03/05/2020 8:54 AM CDT Oxygen Saturation 98% 03/05/2020 8:54 AM CDT Inhaled Oxygen Concentration - - Weight 72.6 kg (160 lb) 03/05/2020 8:54 AM CDT Height - - Body Mass Index 27.46 03/28/2017 11:18 AM CDT documented in this encounter Discharge Instructions Brooks Shrestha DO - 03/05/2020 DIAGNOSIS Diagnoses that have been ruled out: None Diagnoses that are still under consideration: None Final diagnoses: Suspected Covid-19 Virus Infection Acute bronchitis due to COVID-19 virus NO LIFE-THREATENING FINDINGS ON TODAY'S EXAM. PROCEDURES IN THE ER TODAY: Orders Placed This Encounter Procedures XR CHEST 1 VW COVID COVID-19 (ID NOW RAPID TESTING) CBC WITH DIFF COMP. METABOLIC PANEL (28802) Lactic Acid Whole Blood MEDICATIONS ADMINISTERED IN THE ER TODAY AND DISCHARGE MEDICATIONS: Orders Placed This Encounter Medications benzonatate 100 mg capsule chlorpheniramine 4 mg tablet gnyqeiu-sizuyhhwb-vehe 333-133-8.3 mg Tab FOLLOW-UP RECOMMENDATIONS: RECOMMEND FOLLOW-UP WITH A PRIMARY CARE PROVIDER OR SPECIALIST IN 2-5 DAYS, ESPECIALLY IF NO IMPROVEMENT IN SYMPTOMS. MAY FOLLOW-UP WITH A PROVIDER OF YOUR CHOICE, SUCH : 1. A PHYSICIAN OF YOUR CHOICE 2. [facility], . LOCATIONS IN [facility] 3. [facility], [address], [place]; [phone] OR, IF YOU WISH TO FOLLOW-UP WITHIN THE [facility], MAY TRY THESE OPTIONS (CLINIC APPOINTMENTS AVAILABLE ON [id number] BASIS): 1. SCHEDULE AN APPOINTMENT ONLINE AT [email or web address] 2. OR CALL THE [facility] AT OR 3. OR CALL YOUR [facility] PHYSICIAN'S OFFICE DIRECTLY IF YOU ARE ALREADY AN ESTABLISHED [facility] PATIENT. RETURN TO ER FOR WORSENING OF SYMPTOMS. AttachmentsThe following attachments cannot be sent through Care Everywhere. Coronavirus Disease 2019 (COVID-19) ([place]old[place])documented in this encounter Plan of Treatment Health Maintenance Due Date Last Done Comments HEPATITIS C (HCV) SCREEN 1960 DTaP,Tdap,and Td Vaccines (1 - 1969 Tdap) Depression Screening 1970 PAP SMEAR 10/24/1979 Breast Cancer Screening 1998 (MAMMOGRAM) COLONOSCOPY 2008 Zoster Recombinant Vaccine 2008 (SHINGRIX) (1 of 2) INFLUENZA VACCINE (#1) 2020 PNEUMOCOCCAL 0-64 YEARS COMBINED Aged Out No longer eligible based on SERIES patient's age to complete this topic documented as of this encounter Procedures Procedure Name Priority Date/Time Associated Diagnosis Comme nts XR CHEST 1 VW COVID Routine 03/05/2020 9:52 AM Suspected Covi d-19 Results for this CDT Virus Infection procedure ar e in the results section. COVID-19 (ID NOW STAT 03/05/2020 9:44 AM Suspected Covid-1 9 Results for this RAPID TESTING) CDT Virus Infection procedure are in the results section. LACTIC ACID WHOLE STAT 03/05/2020 9:44 AM Suspected Covid- 19 Results for this BLOOD CDT Virus Infection procedure ar e in the results section. CBC WITH DIFF STAT 03/05/2020 9:43 AM Suspected Covid-19 R esults for this CDT Virus Infection procedure ar e in the results section. COMP. METABOLIC STAT 03/05/2020 9:43 AM Suspected Covid-19 Results for this PANEL ([id number]) CDT Virus Infection procedure a re in the results section. documented in this encounter Results XR CHEST 1 VW COVID (03/05/2020 9:52 AM CDT) Specimen Narrative Performed At EXAM: XR CHEST 1 VW COVID PACS/VR/DOSE HISTORY: shortness of breath COMPARISON: None. FINDINGS: The heart and great vessels are normal and the lungs a re well expanded and clear. Procedure Note [facility], Radiant Results Inft User - 2019 9:54 AM CDT EXAM: XR CHEST 1 VW COVID HISTORY: shortness of breath COMPARISON: None. FINDINGS: The heart and great vessels are normal a nd the lungs are well expanded and clear. Performing Organization Address City/[facility] Phone Number PACS/VR/DOSE Lactic Acid Whole Blood (03/05/2020 9:44 AM CDT) Pathologist Sig nature LACTIC ACID 0.80 mmol/L [facility] Specimen Blood - VENOUS Performing Organization Address City/[facility] Phone Number [facility] CLIA: [id number], [address] [place], [place] [address] COVID-19 (ID NOW RAPID TESTING) (03/05/2020 9:44 AM CDT) SARS-CoV-2 Rapid ID Positive (A) Not Detected [facility] Specimen Swab - NASOPHARYNGEAL SWAB Narrative Performed At ID NOW COVID-19 Assay is an isothermal nucleic [facility] acid amplification test intended for the qualitative detection of nucleic acid from SARS-CoV-2 viral RNA in nasopharyngeal (PROFESSIONAL PROGRAMMER ANALYST) specimens. It is used under Emergency Use Authorization (EUA) by FDA. The limit of detection (LOD) of the assay is 125 Genome Equivalents/mL. A positive result is indicative of the presence of SARS-CoV-2 RNA. Clinical correlation with patient history and other diagnostic information is necessary to determine patient infection status. A negative (Not Detected) result does not preclude SARS-CoV-2 infection. In patients with clinical symptoms and other tests that are consistent with SARS-CoV-2 infection, negative results should be treated as presumptive negative and a new specimen should be tested with alternative PCR molecular test. Invalid: Please collect a new specimen for repeat patient testing if clinically indicated. Performing Organization Address City/State[facility] Phone Number [facility] CLIA: [id number], [address] [place], [place] [address] COMP. METABOLIC PANEL ([id number]) (03/05/2020 9:43 AM CDT) [facility] NA 137 135 - 145 mmol/L [facility] K 4.2 3.5 - 5.0 mmol/L [facility] CL 105 98 - 108 mmol/L [facility] CO2 TOTAL 27 23 - 31 mmol/L [facility] AGAP 5 2 - 16 [facility] BUN 15 7 - 23 mg/dL [facility] GLUCOSE 95 70 - 110 mg/dL [facility] CREATININE 0.63 0.50 - 1.04 [facility] mg/dL [facility] TOTAL BILI 0.4 0.1 - 1.1 mg/dL [facility] CALCIUM 8.7 8.6 - 10.6 mg/dL [facility] T PROTEIN 7.4 6.3 - 8.2 g/dL [facility] ALBUMIN 4.1 3.5 - 5.0 g/dL [facility] ALK PHOS 65 34 - 122 U/L [facility] ALTv 32 5 - 35 U/L [facility] AST(SGOT) 35 13 - 40 U/L [facility] eGFR Calculation 96.1 mL/min/1.73m2 [facility] (Non-) [facility] Y eGFR Calculation 116.4 mL/min/1.73m2 [facility] () [facility] Specimen Blood - VENOUS Narrative Performed At Association of Glomerular Filtration Rate (GFR) [facility] and Staging of Kidney Disease* + + +- + | GFR (mL/min/1.73 m2) | With Kidney Damage | Without Kidney Damage + + +- + | >90 | Stage one | Normal + + +- + | 60-89 | Stage two | Decreased GFR + + +- + | 30-59 | Stage three | Stage three + + +- + | 15-29 | Stage four | Stage four + + +- + | <15 (or dialysis) | Stage five | Stage five + + +- + *Each stage assumes the associated GFR level has been in effect for at least three months. Stages 1 to 5, with or without kidney disease, indicate chronic kidney disease. Notes: Determination of stages one and two (with eGFR >59mL/min/1.73 m2) requires estimation of kidney damage for at least three months as defined by structural or functional abnormalities of the kidney, manifested by either: Pathological abnormalities or Markers of kidney damage (including abnormalities in the composition of the blood or urine or abnormalities in imaging tests). Performing Organization Address City/State/Zipcode Phone Number [facility] CLIA: [id number], [address] [place], [place] [address] CBC WITH DIFF (03/05/2020 9:43 AM CDT) Pathologist Sig nature WBC 4.08 (L) 4.30 - 11.10 [facility] 10*3/L [facility] RBC 4.22 3.93 - 5.25 [facility] 10*6/L [facility] HGB 12.7 11.6 - 15.0 [facility] g/dL [facility] HCT 37.7 35.7 - 45.2 % [facility] MCV 89.3 80.6 - 95.5 fL [facility] MCH 30.1 25.9 - 32.8 pg [facility] MCHC 33.7 31.6 - 35.1 [facility] g/dL [facility] RDW-SD 43.3 39.0 - 49.9 fL [facility] RDW-CV 13.2 12.0 - 15.5 % [facility] PLT 240 166 - 358 [facility] 10*3/L [facility] MPV 9.6 9.5 - 12.9 fL [facility] NRBC/100 WBC 0.0 0.0 - 10.0 /100 [facility] WBCs [facility] NRBC x10^3 <0.01 10*3/L [facility] GRAN MAT (NEUT) % 55.2 % [facility] IMM GRAN % 1.20 % [facility] LYMPH % 28.4 % [facility] MONO % 11.8 % [facility] EOS % 2.9 % [facility] BASO % 0.5 % [facility] GRAN MAT x10^3(ANC) 2.25 1.88 - 7.09 [facility] 10*3/uL [facility] IMM GRAN x10^3 0.05 0.00 - 0.06 [facility] 10*3/uL [facility] LYMPH x10^3 1.16 (L) 1.32 - 3.29 [facility] 10*3/uL [facility] MONO x10^3 0.48 0.33 - 0.92 [facility] 10*3/uL [facility] EOS x10^3 0.12 0.03 - 0.39 [facility] 10*3/uL [facility] BASO x10^3 <0.03 0.01 - 0.07 [place] [address]*3/uL [facility] Specimen Blood - VENOUS Performing Organization Address City/State/Zipcode Phone Number [facility] CLIA: [id number], [address] [place], [place] [address] documented in this encounter Visit Diagnoses Diagnosis Acute bronchitis due to COVID-19 virus - Primary Suspected Covid-19 Virus Infection documented in this encounter Additional Health Concerns Infection Onset Date Last Indicated Resolved Time COVID-19 Rule Out 03/05/2020 03/05/2020 03/05/2020 10: 31 AM CDT COVID-19 Confirmed 03/05/2020 03/05/2020 documented as of this encounter Insurance Payer Benefit Plan / Subscriber ID Effective Dates Phone Addre ss Type Group [facility] xxxxxxxxx 2017-Present Medicaid COMM PLAN - PLUS MANAGED MEDICAID documented as of this encounter"
[2020-03-05 22:06] LABS: Absolute Lymphocytes (CBC) 1.8 K/uL (0.7-4.9); Basophils % 0.4 % (0-1.3); RBC Red Blood Cell Count 4.16 M/uL (3.86-4.86)
[2020-03-05 22:10] LABS: Protime INR 1.01
[2020-03-05] MEDS ORDERED: NITROGLYCERIN 0.4 MG/TAB SL ONE (22:19)
[2020-03-05] MEDS ORDERED: NA CHLORIDE 0.9% 1,000 ML ONE (22:19)
[2020-03-05] MEDS ORDERED: FENTANYL CITR 100 MCG/2 ML ONE (22:19)
[2020-03-05 22:23] LABS: ALT/SGPT 84 U/L (12-78); AST/SGOT 126 U/L (15-37); Albumin 3.2 g/dL (3.4-5.0); Alkaline Phosphatase 96 U/L (45-117); BUN Blood Urea Nitrogen 18 mg/dL (7-18); Bicarbonate 25 mmol/L (21-32); Bilirubin Direct < 0.1 mg/dL (0-0.2); Bilirubin Total 0.3 mg/dL (0.2-1.0); Glucose Level 98 mg/dL (74-106); Magnesium 2.2 mg/dL (1.8-2.4); NT PRO-BNP 39 pg/mL (<125); Potassium 4.2 mmol/L (3.5-5.1); Protein, Total 6.8 g/dL (6.4-8.2); Sodium Level 140 mmol/L (136-145); Troponin (Emerg Dept Use Only) < 0.02 ng/mL (0.0-0.045)
--- NOTE | 2020-03-06 00:40 | EDPHYS ---
Physician Documentation [facility] Name: Amara White Age: 59 yrs Sex: Female : 1960 Arrival Date: 03/05/2020 Time: 21:24 Bed 6 Private MD: ED Physician Sunil Mascorro HPI: 03/05 22:07 This 59 yrs old Female presents to ER via EMS with complaints of chest pain. jr8 22:07 The patient or guardian reports chest pain that is located primarily in the substernal jr8 area. Onset: acutely, today. The pain does not radiate. Associated signs and symptoms: Pertinent positives: shortness of breath. The chest pain is described as dull. Duration: The patient or guardian reports a single episode, that is still ongoing. Modifying factors: The symptoms are alleviated by nothing. the symptoms are aggravated by nothing. Severity of pain: At its worst the pain was moderate in the emergency department the pain is unchanged. The patient has experienced similar episodes in the past, a few times. The patient has been recently seen by a physician:. Patient stated that she started with COVID symptoms a few days ago. Went to be tested and was positive. Today started to have chest pain. Also with significant cardiac history. Historical: - Allergies: 21:29 Codeine; mg2 21:29 Premarin; mg2 21:29 steroids; mg2 21:29 Sulfa (Sulfonamide Antibiotics); mg2 21:29 Tetanus-Diphtheria Toxoids-Td; mg2 - Home Meds: 22:18 losartan oral oral [Active]; meloxicam oral oral [Active]; BRILINTA oral oral [Active]; mg2 22:24 Naproxen Oral [Active]; Premarin Oral [Active]; Ranexa oral oral [Active]; rosuvastatin mg2 oral oral [Active]; trazodone Oral [Active]; amlodipine [Active]; calcium [Active]; aripiprazole oral oral [Active]; citalopram oral [Active]; estradiol [Active]; Fish Oil oral oral [Active]; - PMHx: 21:29 Hypertension; heart blockage; mg2 - PSHx: 21:29 back surgery; mg2 - Immunization history:: Flu vaccine status is unknown. - Social history:: Smoking status: unknown. ROS: 22:07 Eyes: Negative for injury, pain, redness, and discharge, ENT: Negative for injury, jr8 pain, and discharge, Neck: Negative for injury, pain, and swelling, Abdomen/GI: Negative for abdominal pain, nausea, vomiting, diarrhea, and constipation, Back: Negative for injury and pain, MS/Extremity: Negative for injury and deformity, Skin: Negative for injury, rash, and discoloration, Neuro: Negative for headache, weakness, numbness, tingling, and seizure. 22:07 Constitutional: Positive for body aches, fatigue, fever, malaise. 22:07 Cardiovascular: Positive for chest pain, Negative for edema, orthopnea, palpitations, paroxysmal nocturnal dyspnea. 22:07 Respiratory: Positive for cough, shortness of breath, Negative for dyspnea on exertion. Exam: 22:07 Eyes: Pupils equal round and reactive to light, extra-ocular motions intact. Lids and jr8 lashes normal. Conjunctiva and sclera are non-icteric and not injected. Cornea within normal limits. Periorbital areas with no swelling, redness, or edema. ENT: Nares patent. No nasal discharge, no septal abnormalities noted. Tympanic membranes are normal and external auditory canals are clear. Oropharynx with no redness, swelling, or masses, exudates, or evidence of obstruction, uvula midline. Mucous membranes moist. Neck: Trachea midline, no thyromegaly or masses palpated, and no cervical lymphadenopathy. Supple, full range of motion without nuchal rigidity, or vertebral point tenderness. No Meningismus. Cardiovascular: Regular rate and rhythm with a normal S1 and S2. No gallops, murmurs, or rubs. Normal PMI, no JVD. No pulse deficits. Respiratory: Lungs have equal breath sounds bilaterally, clear to auscultation and percussion. No rales, rhonchi or wheezes noted. No increased work of breathing, no retractions or nasal flaring. Abdomen/GI: Soft, non-tender, with normal bowel sounds. No distension or tympany. No guarding or rebound. No evidence of tenderness throughout. Back: No spinal tenderness. No costovertebral tenderness. Full range of motion. Skin: Warm, dry with normal turgor. Normal color with no rashes, no lesions, and no evidence of cellulitis. MS/ Extremity: Pulses equal, no cyanosis. Neurovascular intact. Full, normal range of motion. Neuro: Awake and alert, GCS 15, oriented to person, place, time, and situation. Cranial nerves II-XII grossly intact. Motor strength 5/5 in all extremities. Sensory grossly intact. Cerebellar exam normal. Normal gait. Vital Signs: 21:49 BP 149 / 85 LA Supine (auto/pedi); Pulse 58; Resp 16; Temp 97.6(A); Pulse Ox 100% on 2 ds4 lpm NC; Weight 72.57 kg (R); Height 5 ft. 3 in. (160.02 cm) (R); Pain 6/10; 22:19 BP 128 / 65; Pulse 62; Resp 18; Pulse Ox 100% on 2 lpm NC; mg2 22:38 BP 115 / 63; Pulse 67; Resp 17; Pulse Ox 100% on 2 lpm NC; mg2 23:51 BP 116 / 72; Pulse 59; Resp 18; Pulse Ox 100% 2 lpm ; mg2 21:49 Body Mass Index 28.34 (72.57 kg, 160.02 cm) ds4 MDM: 21:32 Patient medically screened. jr8 03/06 00:38 The patient was not given aspirin in the Emergency Department. Not indicated due to jr8 patient's past medical history. Data reviewed: vital signs, nurses notes, lab test result(s), EKG, radiologic studies, plain films. Data interpreted: Pulse oximetry: on room air is 100 %. Interpretation: normal. 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 ED course: Patient resting comfortably. X 2 troponin without acute findings. Pain resolved. Hemodynamically stable. Most likely covid related. Still needs to f/u with cardiology due to past history. Knows to come back if worse . 03/05 21:29 Order name: Basic Metabolic Panel; Complete Time: 22:28 mg2 03/05 21:29 Order name: CBC with Diff; Complete Time: 22:09 mg2 03/05 21:29 Order name: LFT's; Complete Time: :29 mg2 03/05 21:29 Order name: Magnesium; Complete Time: 22:29 mg2 03/05 21:29 Order name: NT PRO-BNP; Complete Time: 22:29 mg2 03/05 21:29 Order name: PT-INR; Complete Time: 22:15 mg2 03/05 21:29 Order name: Troponin (emerg Dept Use Only); Complete Time: 22:29 mg2 03/05 21:29 Order name: XRAY Chest (1 view) mg2 03/05 22:07 Order name: D-Dimer; Complete Time: 22:16 EDMS 03/05 23:38 Order name: Troponin (emerg Dept Use Only); Complete Time: 00:38 jr8 03/05 21:29 Order name: EKG; Complete Time: 21:30 mg2 03/05 21:29 Order name: Cardiac monitoring; Complete Time: :52 mg2 03/05 21:29 Order name: EKG - Nurse/Tech; Complete Time: 21:52 mg2 03/05 21:29 Order name: IV Saline Lock; Complete Time: 21:52 mg2 03/05 21:29 Order name: Labs collected and sent; Complete Time: 21:52 mg2 03/05 21:29 Order name: O2 Per Protocol; Complete Time: 21:52 mg2 03/05 21:29 Order name: O2 Sat Monitoring; Complete Time: 21:52 mg2 Administered Medications: 03/05 22:19 Drug: fentaNYL (PF) 25 mcg Route: IVP; Site: right antecubital; mg2 23:52 Follow up: Response: No adverse reaction mg2 22:19 Drug: Nitroglycerin 0.4 mg Route: Sublingual; mg2 23:52 Follow up: Response: No adverse reaction mg2 22:19 Drug: NS 0.9% 1000 ml Route: IV; Rate: 1000 ml; Site: right antecubital; mg2 03/06 00:00 Follow up: IV Intake: 1000ml mg2 Disposition: 02:49 Co-signature as Attending Physician, Sunil Mascorro MD. [email or web address] Disposition: 03/06/20 00:40 Discharged to Home. Impression: Chest pain, unspecified. - Condition is Stable. - Discharge Instructions: Nonspecific Chest Pain. - Medication Reconciliation Form, Thank You Letter, Antibiotic Education, Prescription Opioid Use form. - Follow up: Private Physician; When: 2 - 3 days; Reason: Recheck today's complaints, Continuance of care, Re-evaluation by your physician. - Problem is new. - Symptoms have improved. Signatures: Dispatcher [employer] [facility] Abdoulaye Gerber PA PA jr8 Donald Dale RN RN mg2 Paloma Torres RN RN ls4 Sunil Mascorro MD MD [email or web address] Corrections: (The following items were deleted from the chart) 03/05 22:07 21:33 D-DIMER+COAG.LAB.BRZ ordered. [facility] 03/06 01:14 00:40 03/06/2020 00:40 Discharged to Home. Impression: Chest pain, unspecified. ls4 Condition is Stable. Forms are Medication Reconciliation Form, Thank You Letter, Antibiotic Education, Prescription Opioid Use. Follow up: Private Physician; When: 2 - 3 days; Reason: Recheck today's complaints, Continuance of care, Re-evaluation by your physician. Problem is new. Symptoms have improved. jr8
--- NOTE | 2020-03-06 00:40 | ER ---
Nurse's Notes [facility] Name: Amara White Age: 59 yrs Sex: Female : 1960 Arrival Date: 03/05/2020 Time: 21:24 Bed 6 Private MD: Diagnosis: Chest pain, unspecified Presentation: 03/05 21:25 Chief complaint: EMS states: she was diagnosed COVID positive in [facility] ED today.she was mg2 having loss of smell, chest pain and shortness of breath. nonradiating chest pain started 45 mins ago. 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 not on blood thinner. Coronavirus screen: Prior COVID test collected on: today [facility] as verbalized by the patient. Ebola Screen: No symptoms or risks identified at this time. Risk Assessment: Do you want to hurt yourself or someone else? Patient reports no desire to harm self or others. Onset of symptoms was March 05, 2020. 21:25 Method Of Arrival: EMS: [facility] mg2 21:25 Acuity: ANDREW 3 mg2 21:25 Initial Sepsis Screen: Does the patient meet any 2 criteria? No. Patient's initial mg2 sepsis screen is negative. Does the patient have a suspected source of infection? No. Patient's initial sepsis screen is negative. Historical: - Allergies: 21:29 Codeine; mg2 21:29 Premarin; mg2 21:29 steroids; mg2 21:29 Sulfa (Sulfonamide Antibiotics); mg2 21:29 Tetanus-Diphtheria Toxoids-Td; mg2 - Home Meds: 22:18 losartan oral oral [Active]; meloxicam oral oral [Active]; BRILINTA oral oral [Active]; mg2 22:24 Naproxen Oral [Active]; Premarin Oral [Active]; Ranexa oral oral [Active]; rosuvastatin mg2 oral oral [Active]; trazodone Oral [Active]; amlodipine [Active]; calcium [Active]; aripiprazole oral oral [Active]; citalopram oral [Active]; estradiol [Active]; Fish Oil oral oral [Active]; - PMHx: 21:29 Hypertension; heart blockage; mg2 - PSHx: 21:29 back surgery; mg2 - Immunization history:: Flu vaccine status is unknown. - Social history:: Smoking status: unknown. Screenin:44 Abuse screen: Denies threats or abuse. Denies injuries from another. Nutritional mg2 screening: No deficits noted. Tuberculosis screening: No symptoms or risk factors identified. Fall Risk IV access (20 points). Assessment: 21:42 General: Appears in no apparent distress. comfortable, Behavior is calm, cooperative. mg2 Pain: Complains of pain in chest Pain does not radiate. Pain currently is 6 out of 10 on a pain scale. Quality of pain is described as pressure, Pain began gradually, 1 hour ago. Neuro: Level of Consciousness is awake, alert, obeys commands, Oriented to person, place, time, situation. Cardiovascular: Capillary refill < 3 seconds Patient's skin is warm and dry. Respiratory: Reports shortness of breath at rest Airway is patent Respiratory effort is even, unlabored, Respiratory pattern is regular, symmetrical. GI: No signs and/or symptoms were reported involving the gastrointestinal system. : No signs and/or symptoms were reported regarding the genitourinary system. EENT: Reports loss of smell. Derm: Skin is intact, is healthy with good turgor, Skin is pink, warm \T\ dry. normal. Musculoskeletal: Circulation, motion, and sensation intact. Capillary refill < 3 seconds. 22:40 Reassessment: Patient appears in no apparent distress at this time. Patient and/or mg2 family updated on plan of care and expected duration. Pain level reassessed. Patient is alert, oriented x 3, equal unlabored respirations, skin warm/dry/pink. Patient states feeling better. Vital Signs: 21:49 BP 149 / 85 LA Supine (auto/pedi); Pulse 58; Resp 16; Temp 97.6(A); Pulse Ox 100% on 2 ds4 lpm NC; Weight 72.57 kg (R); Height 5 ft. 3 in. (160.02 cm) (R); Pain 6/10; 22:19 BP 128 / 65; Pulse 62; Resp 18; Pulse Ox 100% on 2 lpm NC; mg2 22:38 BP 115 / 63; Pulse 67; Resp 17; Pulse Ox 100% on 2 lpm NC; mg2 23:51 BP 116 / 72; Pulse 59; Resp 18; Pulse Ox 100% 2 lpm ; mg2 21:49 Body Mass Index 28.34 (72.57 kg, 160.02 cm) ds4 ED Course: 21:24 Patient arrived in ED. mg2 21:28 Triage completed. mg2 21:29 Arm band placed on. mg2 21:32 Abdoulaye Gerber PA is PHCP. jr8 21:32 Sunil Mascorro MD is Attending Physician. jr8 21:42 No provider procedures requiring assistance completed. Maintain EMS IV. Dressing mg2 intact. Good blood return noted. Site clean \T\ dry. Gauge \T\ site: 20 \T\ RAC. 21:52 Donald Dale, RN is Primary Nurse. mg2 21:52 Patient has correct armband on for positive identification. hall monitor on. Pulse mg2 ox on. NIBP on. Door closed. Warm blanket given. 22:13 XRAY Chest (1 view) In Process Unspecified. EDMS 03/06 00:00 Repeat lab(s) drawn. by ia, sent to lab. mg2 01:13 IV discontinued, intact, bleeding controlled, No redness/swelling at site. Pressure ls4 dressing applied. Administered Medications: 03/05 22:19 Drug: fentaNYL (PF) 25 mcg Route: IVP; Site: right antecubital; mg2 23:52 Follow up: Response: No adverse reaction mg2 22:19 Drug: Nitroglycerin 0.4 mg Route: Sublingual; mg2 23:52 Follow up: Response: No adverse reaction mg2 22:19 Drug: NS 0.9% 1000 ml Route: IV; Rate: 1000 ml; Site: right antecubital; mg2 03/06 00:00 Follow up: IV Intake: 1000ml mg2 Intake: 00:00 IV: 1000ml; Total: 1000ml. mg2 Outcome: 00:40 Discharge ordered by . jr8 01:13 Discharged to home ambulatory. ls4 01:13 Condition: good 01:13 Discharge instructions given to patient, Instructed on discharge instructions, follow up and referral plans. medication usage, safety practices, Demonstrated understanding of instructions, follow-up care, medications. 01:14 Patient left the ED. ls4 Signatures: Dispatcher [employer] EDTX Abdoulaye Gerber PA PA jr8 Laith Almendarez ds4 Donald Dale, KATERINA RN mg2 Paloma Torres RN RN ls4
--- NOTE | 2020-03-06 07:24 | RAD REPORT ---
EXAM DESCRIPTION: RAD - Chest Single View - 03/05/2020 10:13 pm CLINICAL HISTORY: CHEST PAIN, history of positive COVID test, loss of smell, chest pain and shortnes s of breath COMPARISON: Portable December 2018 TECHNIQUE: AP portable chest image was obtained 03/05/2020 10:13 pm . FINDINGS: No focal mass or consolidation. No ground-glass opacification evident at this time. Lung m arkings are accentuated by the shallow inspiration. This could potentially mask very early, minimal i nterstitial edema or infiltrate. Heart and vasculature are normal. No measurable pleural effusion and no pneumothorax. No acute bony abnormality seen. No acute aortic findings suspected. IMPRESSION: No COVID-19 pneumonia or other pneumonia findings identifiable at this time. Interstitial pattern is fractionally increased due to low lung volumes. This could mask the earliest stages of edema or infiltrate.
--- NOTE | 2020-03-06 10:15 | EKG ---
Test Date: 2020-03-05 Test Time: 21:36:46 Cooling Pipe Inspector: MG MEASUREMENT RESULTS: Intervals: Rate: 61 CO: 224 QRSD: 88 QT: 434 QTc: 436 Dutton: P: 25 CO: 224 QRS: 64 T: 57 INTERPRETIVE STATEMENTS: Sinus rhythm with 1st degree AV block Otherwise normal ECG Compared to ECG 12/19/2018 23:16:52 Sinus bradycardia no longer present Electronically Signed On 03-06-20 10:13:49 CDT by Jonny Chang
[2020-03-06 11:37] VITALS: TEMP 97.6; O2SAT 100
[2020-03-06 11:41] VITALS: BP 116/72
== END 2020-03-06 01:14 | disposition home or self-care (01) ==
LOC: ER 21:23
DX: R07.9 Chest pain, unspecified (principal); I10 Essential (primary) hypertension; Z88.2 Allergy status to sulfonamides; Z88.5 Allergy status to narcotic agent; Z88.7 Allergy status to serum and vaccine; Z88.8 Allergy status to other drugs, medicaments and biological substances
CPT/HCPCS: 93005; 85025; 80048; 36415; 83735; 85610; 85379; 80076; 84484 ×2; 83880; 71045; 96374; 99284; J3010; J7030

== ENCOUNTER 2024-10-10 08:03 | Emergency (ER) | payer OTHER ==
--- OUTSIDE RECORDS SUMMARY | 2024-10-10 08:06 | XMS REPORT | Continuity of Care Document ---
Author Name Unknown Address [address] [facility] [address] [place] [id number] [facility] thconnect Address [address] [facility]. [address] [place] [address] Care Team Providers Care Trimmer Sorter Name Role Phone LUDY GUEVARA Attending Clinician Unavailable YASMEEN PEREZ M.D. Attending Clinician FRANK Alexander M.D. Attending Clinician David bain Problems Condition Name Condition Details Condition Category Status Onset Date Resolution Date Last Treatment Date Treating Clinician Comments Source History of chlamydia History of chlamydia Problem HL7.CCDAR2 Resolve d [facility] History of cyst of breast History of cyst of breast Problem HL7.CCDAR2 Resolve d [facility] History of Degenerati ve disorder of bone History of Degenerati ve disorder of bone Problem HL7.CCDAR2 Resolve d [facility] History of scoliosis History of scoliosis Problem HL7.CCDAR2 Resolve d [facility] History of gonorrhea History of gonorrhea Problem HL7.CCDAR2 Resolve d [facility] 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 Problem HL7.CCDAR2 Resolve d [facility] Rectocele, female Rectocele, female Problem HL7.CCDAR2 Active [facility] Urinary incontinen ce Urinary incontinen ce Problem HL7.CCDAR2 Active [facility] Vaginal pain Vaginal pain Problem HL7.CCDAR2 Active [facility] Cystocele Cystocele Problem HL7.CCDAR2 Active [facility] Mixed incontinen ce urge and stress Mixed incontinen ce urge and stress Problem HL7.CCDAR2 Active [facility] Atrophic vaginitis Atrophic vaginitis Problem HL7.CCDAR2 Active [facility] Urinary frequency Urinary frequency Problem HL7.CCDAR2 Active [facility] Urinary urgency Urinary urgency Problem HL7.CCDAR2 Active [facility] History of chronic pain History of chronic pain Problem HL7.CCDAR2 Resolve d [facility] History of depression History of depression Problem HL7.CCDAR2 Resolve d [facility] History of Incontinen ce History of Incontinen ce Problem HL7.CCDAR2 Resolve d [facility] History of post traumatic stress disorder History of post traumatic stress disorder Problem HL7.CCDAR2 Resolve d [facility] Allergies, Adverse Reactions, Alerts Allergy Name Allergy Type Status Severity Reaction(s) Onset Date Inactive Date Treating Clinician Comments Source Lyrica CAPS drug allergy Active [facility] PredniSO NE TABS drug allergy Active [facility] Premarin drug allergy Active [facility] Sulfa Drugs drug allergy Active [facility] TETANUS drug allergy Active [facility] Bee sting allergy to substanc e Active [facility] Albutero l AERS drug allergy Active [facility] Amoxicil kathy TABS drug allergy Active [facility] Codeine Derivati ves drug allergy Active [facility] Family History Family Member Diagnosis Comments Start Date Stop Date Sourc e Sibling Family history of bipolar disorder [facility] Sibling Family history of malignant neoplasm of colon [facility] Father Family history of hepatic cirrhosis [facility] Father Family history of schizophrenia [facility] Sister Family history of cardiac disorder [facility] natural daughter Family history of He art defect [facility] natural daughter Family history of autoimmune disorder [facility] natural daughter Family history of josephine pus erythematosus [facility] Social History Smoking Status Start Date Stop Date Source Never smoker [facility] Medications Ordered Medication Name Filled Medication Name Start Date Stop Date Current Medication? Ordering Clinician Indication Dosage Frequency Signature (SIG) Comments Components Source Aspir-81 TBEC Aspir-81 TBEC Yes [facility] Estradiol TABS Estradiol TABS Yes [facility] Estradiol 2 MG Oral Tablet Estradiol 2 MG Oral Tablet Yes [facility] Estropipate TABS Estropipate TABS Yes [facility] Acetaminoph en-Codeine #3 300-30 MG Oral Tablet Acetaminoph en-Codeine #3 300-30 MG Oral Tablet Yes [facility] Flintstones /My First CHEW Flintstones /My First CHEW Yes [facility] Biotin 47497 MCG Oral Tablet Biotin 42224 MCG Oral Tablet Yes [facility] B-12 500 MCG Oral Tablet B-12 500 MCG Oral Tablet Yes [facility] Vitamin D3 5000 UNIT Oral Capsule Vitamin D3 5000 UNIT Oral Capsule Yes [facility] Calcium 600+D3 600-800 MG-UNIT Oral Tablet Calcium 600+D3 600-800 MG-UNIT Oral Tablet Yes [facility] Ascorbic Acid TABS Ascorbic Acid TABS Yes [facility] Lecithin 500 MG CAPS Lecithin 500 MG CAPS Yes [facility] Collagen 500 MG CAPS Collagen 500 MG CAPS Yes [facility] Vital Signs Vital Name Observation Time Observation Value Comments S bingce BP Systolic 2018-02-18 14:42:00 150 mm[Hg] Location : RUE; Position: Sitting [facility] BP Diastolic 2018-02-18 14:42:00 99 mm[Hg] Location : RUE; Position: Sitting [facility] Weight 2018-02-18 14:42:00 156 [lb_av] [facility] Body Mass Index Calculated 2018-02-18 14:42:00 27.63 kg/m2 [facility] Height 2018-02-18 14:42:00 63 [in_us] [facility] Heart Rate 2018-02-18 14:42:00 88 /min [facility] BP Systolic 2018-02-09 16:36:00 132 mm[Hg] Location : LUE; Position: Sitting [facility] BP Diastolic 2018-02-09 16:36:00 85 mm[Hg] Location : LUE; Position: Sitting [facility] BP Systolic 2018-02-09 15:18:00 173 mm[Hg] Location : RUE; Position: Sitting [facility] BP Diastolic 2018-02-09 15:18:00 134 mm[Hg] Location : RUE; Position: Sitting [facility] Height 2018-02-09 15:18:00 63 [in_us] [facility] Weight 2018-02-09 15:18:00 156 [lb_av] [facility] Body Mass Index Calculated 2018-02-09 15:18:00 27.63 kg/m2 [facility] Procedures Procedure Date / Time Performed Performing Clinicia n Source [[facility]] CULTURE, URINE, ROUTINE 2018-02-18 00:00:00 [facility] History of Cyst excision [facility] History of Gastric bypass surgery [facility] History of Hysterectomy [facility] History of Urethropexy [facility] Encounters Start Date/Time End Date/Time Encounter Type Admission Type Attending Clinicians Care Facility Care Department Encounter ID Source 2021-11-19 15:08:44 Outpatient LUDY GUEVARA [facility] [id number] [facility] 2018-02-18 14:00:00 2018-03-14 13:00:33 Outpatient [facility] [id number] 2018-02-18 14:00:00 2018-02-18 14:00:00 Appointmen t; YASMEEN PEREZ M.D. PANCHOLY, APURVA, M.D. [facility] [id number] [facility] 2018-02-09 15:10:00 2018-02-09 15:10:00 Appointmen t; FRANK DANIELLE M.D. RICHTER, MAGGIE, M.D. [facility] [id number] [facility] Results Test Description Test Time Test Comments Results Result Co mments Source [facility]
[2024-10-10] MEDS ORDERED: MECLIZINE HCL 12.5 MG TAB ONE (08:18)
[2024-10-10 09:00] LABS: Anion Gap 9.6 mEq/L (5.0-15.0); Magnesium 2.5 mg/dL (1.6-2.4); Potassium 3.6 mEq/L (3.5-5.1); Troponin High Sensitivity 3.6 pg/mL (<58.9)
[2024-10-10 09:06] LABS: Absolute Basophils 0.1 K/uL (0-0.5); Absolute Eosinophils 0.3 K/uL (0-0.5); Absolute Lymphocytes (CBC) 2.9 K/uL (0.7-4.9); Absolute Monocytes 0.5 K/uL (0.1-1.3); Basophils % 0.9 % (0-1.3); Eosinophils % 3.6 % (0-4.4); Hematocrit 37.5 % (36.0-45.0); Hemoglobin 12.7 g/dL (12.0-15.0); Lymphocytes % 37.2 % (15.3-44.8); MCHC 33.7 g/dL (32.0-36.0); Monocytes % 6.8 % (3.3-12.3); Neutrophils % 51.5 % (41.7-73.7); Platelets 272 thou/uL (152-406); RBC Red Blood Cell Count 4.08 M/uL (3.86-4.86); Red Cell Distribution Width 14.6 % (12.1-15.2)
--- NOTE | 2024-10-10 09:10 | RAD REPORT ---
EXAMINATION: ONE VIEW CHEST XR CLINICAL INDICATION: CHEST PAIN TECHNIQUE: Frontal chest projection is submitted. Examination is limited by patient positioning and t echnique. COMPARISON: 03/05/2020 FINDINGS: The lungs are well inflated and clear. The heart is normal in size. No displaced fractures identified . IMPRESSION: No acute intrathoracic abnormalities.
--- NOTE | 2024-10-10 10:29 | RAD REPORT ---
EXAM: CT brain without contrast HISTORY: dizzines COMPARISON: None TECHNIQUE: Multiple contiguous axial images were obtained and a CT of the brain without contrast. Sag ittal and coronal reformats were performed. One or more of the following dose reduction techniques were used: Automated exposure control, adjust ment of the mA and/or kV according to patient size, and/or iterative reconstruction. FINDINGS: No evidence of hydrocephalus, intracranial hemorrhage, or extra-axial fluid collection. The brain is normal in morphology. No evidence of midline shift or areas of brain edema. The calvarium is intact. The visualized paranasal sinuses and mastoid air cells are essentially clear . IMPRESSION: No evidence of acute intracranial abnormality.
--- NOTE | 2024-10-10 10:38 | ER ---
Nurse's Notes [facility] Name: Amara Noe Age: 63 yrs Sex: Female : 1960 Arrival Date: 10/10/2024 Time: 08:03 Bed 20 Private MD: Diagnosis: Chest pain, unspecified;Dizziness Presentation: 10/10 08:10 Chief complaint: Patient states: mid sternal CP and dizziness x6 mo. states over the kc6 last few days she has felt worse than usual. pt states, "I just feel like everything is draining out of me.". Coronavirus screen: At this time, the client does not indicate any symptoms associated with coronavirus-19. Ebola Screen: No symptoms or risks identified at this time. Initial Sepsis Screen: Does the patient meet any 2 criteria? No. Patient's initial sepsis screen is negative. Does the patient have a suspected source of infection? No. Patient's initial sepsis screen is negative. Risk Assessment: Do you want to hurt yourself or someone else? Patient reports no desire to harm self or others. Onset of symptoms was October 10, 2024. 08:10 Method Of Arrival: EMS: [facility] kc6 08:10 Acuity: ANDREW 3 kc6 Historical: - Allergies: 08:11 Codeine; kc6 08:11 Premarin; kc6 08:11 Tetanus-Diphtheria Toxoids-Td; kc6 08:11 Sulfa (Sulfonamide Antibiotics); kc6 08:11 steroids; kc6 - PMHx: 08:11 Hypertension; heart blockage; Hypercholesterolemia; kc6 - Immunization history:: Adult Immunizations up to date. - Infectious Disease History:: Denies. - Social history:: Smoking status: Patient denies any tobacco usage or history of. Screenin:12 [facility] ED Fall Risk Assessment (Adult) History of falling in the last 3 months, kc6 including since admission No falls in past 3 months (0 pts) Confusion or Disorientation No (0 pts) Intoxicated or Sedated No (0 pts) Impaired Gait No (0 pts) Mobility Assist Device Used No (0 pt) Altered Elimination No (0 pt) Score/Fall Risk Level 0 - 2 = Low Risk Oriented to surroundings, Maintained a safe environment, Educated pt \\T\\ family on fall prevention, incl call for assistance when getting out of bed. Abuse screen: Denies threats or abuse. Denies injuries from another. Nutritional screening: No deficits noted. Tuberculosis screening: No symptoms or risk factors identified. Assessment: 08:15 General: Appears in no apparent distress. comfortable, well groomed, well developed, kc6 Behavior is calm, cooperative, appropriate for age. Pain: Complains of pain in mid-sternal area Pain does not radiate. Pain began 2-3 days ago. Neuro: Level of Consciousness is awake, alert, obeys commands, Oriented to person, place, time, situation, Appropriate for age Reports dizziness, weakness. Cardiovascular: Reports chest pain, Heart tones S1 S2 present Capillary refill < 3 seconds Rhythm is sinus rhythm. Respiratory: Reports cough that is non-productive, dry, persistent Airway is patent Trachea midline Respiratory effort is even, unlabored, Respiratory pattern is regular, symmetrical. GI: No signs and/or symptoms were reported involving the gastrointestinal system. : No signs and/or symptoms were reported regarding the genitourinary system. EENT: No signs and/or symptoms were reported regarding the EENT system. Derm: No signs and/or symptoms reported regarding the dermatologic system. Skin is intact, is healthy with good turgor, Skin is pink, warm \\T\\ dry. Musculoskeletal: No signs and/or symptoms reported regarding the musculoskeletal system. Circulation, motion, and sensation intact. Range of motion: intact in all extremities. 09:15 Reassessment: Patient appears in no apparent distress at this time. No changes from kc6 previously documented assessment. Patient and/or family updated on plan of care and expected duration. Pain level reassessed. Patient is alert, oriented x 3, equal unlabored respirations, skin warm/dry/pink. 10:19 Reassessment: Patient appears in no apparent distress at this time. No changes from kc6 previously documented assessment. Patient and/or family updated on plan of care and expected duration. Pain level reassessed. Patient is alert, oriented x 3, equal unlabored respirations, skin warm/dry/pink. 11:06 Reassessment: Patient appears in no apparent distress at this time. No changes from kc6 previously documented assessment. Patient and/or family updated on plan of care and expected duration. Pain level reassessed. Patient is alert, oriented x 3, equal unlabored respirations, skin warm/dry/pink. Vital Signs: 08:10 BP 135 / 64; Pulse 74; Resp 18 S; Temp 97.9(O); Pulse Ox 100% on R/A; Weight 61.23 kg kc6 (R); Height 5 ft. 3 in. (R); 11:06 BP 121 / 60; Pulse 78; Resp 18 S; Pulse Ox 100% on R/A; kc6 08:10 Body Mass Index 23.91 (61.23 kg, 160.02 cm) kc6 ED Course: 08:09 Patient arrived in ED. kc6 08:11 Khalfi Holloway DO is Attending Physician. ms3 08:11 Triage completed. kc6 08:11 Arm band placed on. kc6 08:12 Patient has correct armband on for positive identification. Bed in low position. Call kc6 light in reach. Side rails up X 1. Pulse ox on. NIBP on. Door closed. Noise minimized. Lights dimmed. Pillow given. 08:12 Patient maintains SpO2 saturation greater than 95% on room air. kc6 08:16 Huyen Dumont RN is Primary Nurse. kc6 08:36 Initial lab(s) drawn, by ma, sent to lab. Missed attempt(s): 20 gauge in left forearm. kc6 08:52 XRAY Chest (1 view) In Process Unspecified. EDMS 10:20 CT Head Brain wo Cont In Process Unspecified. EDMS 10:37 Dino Leon DO is Referral Physician. ms3 10:37 Gilles Mays MD is Referral Physician. ms3 11:06 No provider procedures requiring assistance completed. Patient did not have IV access kc6 during this emergency room visit. Administered Medications: 08:36 Drug: Meclizine PO 50 mg PO once Route: PO; kc6 10:18 Follow up: Response: No adverse reaction kc6 Medication: 11:06 VIS not applicable for this client. kc6 Outcome: 10:38 Discharge ordered by . ms3 11:06 Discharged to home via wheelchair, kc6 11:06 Condition: good 11:06 Discharge instructions given to patient, Instructed on discharge instructions, follow up and referral plans. Demonstrated understanding of instructions, follow-up care, 11:07 Patient left the ED. kc6 Signatures: Dispatcher [employer] EDMS Khalif Holloway DO DO ms3 Huyen Dumont, RN RN kc6
--- NOTE | 2024-10-10 10:38 | EDPHYS ---
Physician Documentation [facility] Name: Amara White Age: 63 yrs Sex: Female : 1960 Arrival Date: 10/10/2024 Time: 08:03 Bed 20 Private MD: ED Physician Khalif Holloway HPI: 10/10 10:38 This 63 yrs old Female presents to ER via EMS with complaints of Chest Pain, Dizziness. ms3 10:38 63-year-old female with past medical history of hypertension, hyperlipidemia presents ms3 to the emergency department for, fibromyalgia, bronchitis, dizziness, headaches, PTSD, depression presents to the emergency department for chest pain and dizziness that has been ongoing for 1 week. Patient states she has had intermittent dizziness that is currently being worked up with neurology intermittently over the last 2 years. Patient has not recently taken her meclizine prescription. Patient states her chest discomfort is a 5/10 described as being tight and located substernally.. Historical: - Allergies: 08:11 Codeine; kc6 08:11 Premarin; kc6 08:11 Tetanus-Diphtheria Toxoids-Td; kc6 08:11 Sulfa (Sulfonamide Antibiotics); kc6 08:11 steroids; kc6 - PMHx: 08:11 Hypertension; heart blockage; Hypercholesterolemia; kc6 - Immunization history:: Adult Immunizations up to date. - Infectious Disease History:: Denies. - Social history:: Smoking status: Patient denies any tobacco usage or history of. ROS: 10:38 Constitutional: Negative for fever, and chills. ms3 10:38 Respiratory: Negative for shortness of breath, cough, wheezing, and pleuritic chest pain, Abdomen/GI: Negative for abdominal pain, nausea, vomiting, diarrhea, and constipation, MS/Extremity: Negative for injury and deformity, Skin: Negative for injury, rash, and discoloration, 10:38 Cardiovascular: Positive for chest pain, 10:38 Neuro: Positive for dizziness, Exam: 10:38 Constitutional: This is a well developed, well nourished patient who is awake, alert, ms3 and in no acute distress. Cardiovascular: Regular rate and rhythm with a normal S1 and S2. No gallops, murmurs, or rubs. Normal PMI, no JVD. No pulse deficits. Respiratory: Lungs have equal breath sounds bilaterally, clear to auscultation and percussion. No rales, rhonchi or wheezes noted. No increased work of breathing, no retractions or nasal flaring. Abdomen/GI: Soft, non-tender, with normal bowel sounds. No distension or tympany. No guarding or rebound. No evidence of tenderness throughout. Skin: Warm, dry with normal turgor. Normal color with no rashes, no lesions, and no evidence of cellulitis. MS/ Extremity: Pulses equal, no cyanosis. Neurovascular intact. Full, normal range of motion. Neuro: Awake and alert, GCS 15, oriented to person, place, time, and situation. Cranial nerves II-XII grossly intact. Motor strength 5/5 in all extremities. Sensory grossly intact. Cerebellar exam normal. Normal gait. 10:44 ECG was reviewed by the Attending Physician. ms3 Vital Signs: 08:10 BP 135 / 64; Pulse 74; Resp 18 S; Temp 97.9(O); Pulse Ox 100% on R/A; Weight 61.23 kg kc6 (R); Height 5 ft. 3 in. (R); 11:06 BP 121 / 60; Pulse 78; Resp 18 S; Pulse Ox 100% on R/A; kc6 08:10 Body Mass Index 23.91 (61.23 kg, 160.02 cm) [facility] MDM: 08:26 Medical Screening Exam initiated ms3 10:38 Differential diagnosis: abnormal EKG, acute myocardial infarction, coronary artery ms3 disease chest wall pain, Brain tumor. HEART Score: History: Slightly Suspicious (0), ECG: Normal (0), Age: > or = 65 years (2), Risk Factors: 1 or 2 risk factors (1), Troponin: < or = 1 x Normal Limit (0), Total Score = 3. Data reviewed: vital signs, lab test result(s), EKG, radiologic studies, and as a result, I will discharge patient. I considered the following discharge prescriptions or medication management in the emergency department Medications were administered in the Emergency Department. See MAR. Independent interpretation of the following test(s) in the Emergency Department EKG: See my EKG interpretation above. Counseling: I had a detailed discussion with the patient and/or guardian regarding the historical points, exam findings, and any diagnostic results supporting the discharge/admit diagnosis, lab results, radiology results, the need for outpatient follow up, to return to the emergency department if symptoms worsen or persist or if there are any questions or concerns that arise at home. Special discussion: I discussed with the patient/guardian in detail that at this point there is no indication for admission to the hospital. It is understood, however, that if the symptoms persist or worsen the patient needs to return immediately for re-evaluation. ED course: Patient troponin normal, EKG normal. Heart score 3. CT head obtained as patient stated she has not had neuroimaging with continuous dizziness over the last 2 years. Patient notes her mother had a brain tumor in her 60s. CT head today is without acute abnormalities. Discussed with patient necessity to follow-up with her primary care physician, cardiology in 2 to 3 days for further evaluation. Patient understands and agrees with plan. All questions were answered. Return precautions discussed include worsening symptoms, or any other concerns.. 10/10 08:12 Order name: Basic Metabolic Panel; Complete Time: : ms3 10/10 08:12 Order name: CBC with Diff; Complete Time: : ms3 10/10 08:12 Order name: Magnesium; Complete Time: : ms3 10/10 08:12 Order name: Troponin HS; Complete Time: : ms3 10/10 08:12 Order name: XRAY Chest (1 view); Complete Time: : ms3 10/10 09:39 Order name: CT Head Brain wo Cont; Complete Time: 10:31 ms3 10/10 08:12 Order name: EKG; Complete Time: 08:13 ms3 10/10 08:12 Order name: EKG - Nurse/Tech; Complete Time: 08:36 ms3 10/10 08:12 Order name: IV Saline Lock; Complete Time: 08:36 ms3 10/10 08:12 Order name: Labs collected and sent; Complete Time: 08:36 ms3 10/10 08:12 Order name: O2 Per Protocol; Complete Time: 08: ms3 10/10 08:12 Order name: O2 Sat Monitoring; Complete Time: 08:13 ms3 EC:44 Rate is 65 beats/min. Rhythm is regular. QRS [place] is Normal. [place] interval is normal. QRS ms3 interval is normal. Clinical impression: Normal ECG. Interpreted by me. Reviewed by me. Administered Medications: 08:36 Drug: Meclizine PO 50 mg PO once Route: PO; kc6 10:18 Follow up: Response: No adverse reaction kc6 Disposition Summary: 10/10/24 10:38 Discharge Ordered Notes: Location: Home ms3 Condition: Stable ms3 Diagnosis - Chest pain, unspecified ms3 - Dizziness ms3 Followup: ms3 - With: Dino Leon DO - When: 2 - 3 days - Reason: Recheck today's complaints Followup: ms3 - With: Gilles Mays MD - When: 2 - 3 days - Reason: Recheck today's complaints Discharge Instructions: - Discharge Summary Sheet ms3 - Nonspecific Chest Pain, Adult ms3 - Dizziness, [id number] ms3 Forms: - Medication Reconciliation Form ms3 - Antibiotic Education ms3 - Prescription Opioid Use ms3 - Patient Portal Instructions ms3 - Leadership Thank You Letter ms3 Signatures: Dispatcher [employer] Khalif Pierre DO DO ms3 Huyen Dumont RN RN kc6
[2024-10-10 11:11] VITALS: TEMP 97.9; O2SAT 100
[2024-10-10 11:13] VITALS: BP 121/60
== END 2024-10-10 11:07 | disposition home or self-care (01) ==
LOC: ER 08:03
DX: R07.9 Chest pain, unspecified (principal); R42 Dizziness and giddiness; I10 Essential (primary) hypertension; E78.00 Pure hypercholesterolemia, unspecified
CPT/HCPCS: 93005; 85025; 80048; 36415; 83735; 84484; 70450; 71045; 99284; J8597